=== PATIENT | male | born 1930 | race Caucasian/White ===

== ENCOUNTER → 2016-07-30 | Outpatient (CLI) | payer OTHER ==
[~2016-07-30] MED LIST: ALPHA LIPOIC A300 MG PO; ALPHA LIPOIC A600 M1 PO; ANACIN 400-321 EACH PO; ASA81BEC PO; B-COMPLEX WITH1 EAC2 PO; CATHFLO ACT2 MG/VIA1 IV; CEPHALEXIN 500500 M1 PO; CLEOCIN HCL150 MG PO; COLACE100 MG PO; COMBIGAN EYE DR10 ML OPHTHALMIC; DIPHENHYDRAM50 MG/M2 IV; DULERA 200 MCG/13 GM INH; DUONEB 2.5-0.5 M3 ML INH; ELIQUIS5 MG PO; ENOXAPARIN30 MG/0.1 SUBQ; ENOXAPARIN40 MG/0.1 SUBQ; FERROUS SULFAT325 M1 PO; FISH OIL 1,001000 M2 PO; FISH OIL 1,2001 EAC4 PO; FUROSEMIDE 40 M40 M1 PO; FUROSEMIDE 80 M80 M1 PO; GINKGO BILOBA120 MG PO; GLUCOPHAGE XR500 MG PO; GLUCOPHAGE500 MG PO; HYDROCHLOROTH12.5 MG PO; IRON325 PO; KLOR-CON M2020 MEQ PO; LASIX 20 MG TAB20 MG PO; LASIX 40 MG TAB40 M2 PO; LIPITOR20 MG PO; LIPITOR80 MG PO; LISINOPRIL5 MG PO; MACROBID 100 M100 M1 PO; MAG-AL PLUS SUS30 ML PO; METFORMIN HCL500 MG PO; MICROBID; MIRALAX17 GM PO; NEURONTIN 300300 M1 PO; NORCO 10-325 T1 EACH PO; NOVOLOG100 UNIT/1 SQ; NYSTATIN1 EA10 SW&SWALLOW; POTASSIUM20 PO; PREDNISONE 20 M20 MG PO; PROAIR HFA8.5 GM INH; PROAIR HFA8.5 GM PO; PROTONIX40 M1 PO; PROTONIX40 M2 PO; SLO-NIACIN250 MG PO; SURFAK240 MG PO; TIMOLOL GL0.5 %/5 M1 OP; TOPROL XL50 MG PO; TORSEMIDE20 MG PO; TYLENOL325 MG PO; VENTOLIN HFA 1818 GM INH; VITAMIN D1000 UNI1 PO; VITAMIN D32000 UNIT PO; XALATAN2.5 ML OPHTHALMIC; ZESTRIL20 MG PO; [UNRECOGNIZED DRUG - CODE] PO; [UNRECOGNIZED DRUG - OTHER]; [UNRECOGNIZED DRUG - OTHER]; [UNRECOGNIZED DRUG - OTHER] PO
== END ==
LOC: RAD 08:50
DX: R06.00 Dyspnea, unspecified (principal)

== ENCOUNTER → 2016-10-02 | Outpatient (CLI) | payer OTHER | LOC: ULTRA 02:24 | DX: N13.2 Hydronephrosis with renal and ureteral calculous obstruction (principal) ==

== ENCOUNTER → 2016-10-21 | Outpatient (CLI) | payer OTHER | LOC: RAD 08:59 → NUC 15:16 | DX: M48.56XA Collapsed vertebra, not elsewhere classified, lumbar region, initial encounter for fracture (principal); M85.80 Other specified disorders of bone density and structure, unspecified site; Z79.52 Long term (current) use of systemic steroids ==

== ENCOUNTER → 2018-05-18 | Outpatient (CLI) | payer OTHER | LOC: HYPER 09:31 | DX: S61.220A Laceration with foreign body of right index finger without damage to nail, initial encounter (principal); S61.012A Laceration without foreign body of left thumb without damage to nail, initial encounter; E11.40 Type 2 diabetes mellitus with diabetic neuropathy, unspecified; G47.30 Sleep apnea, unspecified; I10 Essential (primary) hypertension; I48.91 Unspecified atrial fibrillation; M19.90 Unspecified osteoarthritis, unspecified site; Z79.84 Long term (current) use of oral hypoglycemic drugs; Z86.73 Personal history of transient ischemic attack (TIA), and cerebral infarction without residual deficits; Z96.649 Presence of unspecified artificial hip joint; X58.XXXA Exposure to other specified factors, initial encounter; Y93.89 Activity, other specified; Y92.89 Other specified places as the place of occurrence of the external cause; Y99.8 Other external cause status ==

== ENCOUNTER → 2018-06-08 | Outpatient (CLI) | payer OTHER | LOC: HYPER 06:52 | DX: S61.012D Laceration without foreign body of left thumb without damage to nail, subsequent encounter (principal); S61.211D Laceration without foreign body of left index finger without damage to nail, subsequent encounter; E11.40 Type 2 diabetes mellitus with diabetic neuropathy, unspecified; G47.30 Sleep apnea, unspecified; I10 Essential (primary) hypertension; I48.91 Unspecified atrial fibrillation; M19.90 Unspecified osteoarthritis, unspecified site; Z86.73 Personal history of transient ischemic attack (TIA), and cerebral infarction without residual deficits; Z79.84 Long term (current) use of oral hypoglycemic drugs; X58.XXXD Exposure to other specified factors, subsequent encounter ==

== ENCOUNTER 2018-08-26 07:59 | Inpatient (IN) | payer OTHER ==
[~2018-08-26] VITALS: Ht 170.2 cm; Wt 83.9 kg
--- NOTE | ~2018-08-26 | HC ---
[facility] [place] [address] CONSULTATION Name: JATIN LIVE Room #: 426-P [facility] IN M.R.#: [id number] Admission: 08/26/18 ������������������ Attend Phys: Dima Cosme MD Discharge: ������������������ Date of : 30 Report #: [id number] THIS REPORT FOR: //name// CC: Dima Cosme DATE OF SERVICE: 08/27/2018 REASON FOR CONSULTATION: Right parotitis. HISTORY OF PRESENT ILLNESS: The patient is an 88-year-old male who has a 5-day history of swelling of the right parotid gland that has gotten significantly worse over the last couple of days. He said it started off as a quarter-sized mass under his jaw on the right side and progressively increased over the weekend to yesterday. He was seen by Dr. Cosme and encouraged to be admitted; however, he waited another 18 hours and then presented yesterday morning for admission. He has had significant increase in size over the last 2 days. No evidence of fluctuance. He has had a fine needle aspiration performed this morning under ultrasonic guidance and again no evidence of abscess or fluctuance is demonstrated or documented. PAST MEDICAL HISTORY: Significant for diabetes type 2, diabetic neuropathy, chronic kidney disease, proteinuria, atrophic right kidney, COPD, asthma, atrial fibrillation, hyperlipidemia, chronic lymphedema, stroke, cervical disk disease, malnutrition, anemia of chronic disease, left shoulder surgery, transurethral prostate resection and obstructive sleep apnea, CPAP compliant. MEDICATIONS: Listed. He is currently on meropenem in the hospital and was previously on clindamycin. ALLERGIES: SULFA AND PENICILLIN. SOCIAL HISTORY: He lives at [facility]. Denies alcohol or tobacco. REVIEW OF SYSTEMS: Significant for sore right jaw. PHYSICAL EXAMINATION: GENERAL: Well-developed male in no apparent distress. He is up with a walker back and forth to the bathroom. HEENT: Head is normocephalic. Pupils are equal. Nasal: No active rhinorrhea. Oral cavity, no purulence from Stensen's duct is seen. Oropharynx: No granulation, ulceration or mass. NECK: He has a right-sided parotid swelling that is firm. There is no evidence of palpable fluctuance. It is a 7 x 5 x 4 cm. IMPRESSION: Acute parotitis, likely dehydration, cannot rule out inflammatory process or malignancy at this time, although I think it is quite likely that [facility] [address] [facility] [address] CONSULTATION Name: JATIN LIVE Room #: 426-P [facility] IN M.R.#: [id number] Admission: 08/26/18 ������������������ Attend Phys: Dima Cosme MD Discharge: ������������������ Date of : 30 Report #: [id number] this is acute parotitis secondary to GI dehydration. PLAN: He is on meropenem IV and IV hydration. Warm pack and massage are also helpful as his guaifenesin. If he worsens, please recall me, I do not see at this point any evidence that he needs to have anything drained and there is no evidence that he has formed an abscess. Based on his final aspiration results, we will proceed accordingly. ��������������������������������������������� ���������������������������������������� By: ��������������������������������������������� [id number] Bharath Tapia MD /nt
[2018-08-26 09:28] LABS: HEMATOCRIT 37.7 % (42.0-52.0); HEMOGLOBIN 12.5 gm/dL (14.0-18.0); MCH 29.9 pg (26.0-34.0); MCHC 33.1 g/dL (28.0-37.0); MCV 90.4 fL (80.0-100.0); RBC 4.17 mil/uL (4.50-6.00); RDW 14.8 % (10.5-14.5)
[2018-08-26 09:50] LABS: ALBUMIN 2.8 g/dL (3.4-5.0); CALCIUM 8.9 mg/dL (8.5-10.1); CREATININE 1.4 mg/dL (0.7-1.3); POTASSIUM 3.7 mmol/L (3.5-5.1); TOTAL BILIRUBIN 0.7 mg/dL (<0.1-1.0); TOTAL PROTEIN 6.3 g/dL (6.4-8.2)
[2018-08-26 11:28] VITALS: BP 142/68
--- NOTE | 2018-08-26 11:31 | NUR ---
88 YO MALE DIRECTLY ADMITTED BY DR. SWAIN, CAME FROM ADMITTING. A&OX4, R NECK NOTED TO HAVE SWELLING, DENIES PAIN TO THIS AREA. PHONE ORDERS RECEIVED. IV STARTED IN R FA, UA/CX OBTAINED, BLOOD CX DRAWN FROM LAB, PT IS IN CT AT THIS TIME. PT ORIENTED TO ROOM/CALL LIGHT.
--- NOTE | 2018-08-26 12:05 | NUR ---
ASSESSMENT-PT LIVES IN AN INDEPENDENT APT AT [facility]. PT USES A WALKER IN THE APT AND A POWER WC OUTSIDE. PT GOES TO THE DINING AREA FOR HIS MEALS. HE GETS BATH ASSISTANCE DAILY AND HLP WITH [facility]. PT HAS HAD INTERIM HH IN THE PAST. PT HAS A SON AND DTR-IN-LAW HERE AND ANOTHER SON CLOSE TO [facility]. FOLLOWING TO ASSIST WITH DC PLANNING.
[2018-08-26 13:33] LABS: URINE BILIRUBIN NEGATIVE (Negative); URINE BLOOD TRACE (Negative); URINE CLARITY CLEAR; URINE COLOR YELLOW; URINE GLUCOSE-RANDOM* NEGATIVE (Negative); URINE KETONES NEGATIVE (Negative); URINE LEUKOCYTES 2+ (Negative); URINE NITRITE POSITIVE (Negative); URINE PROTEIN (DIPSTICK) 2+ (Negative); URINE SPECIFIC GRAVITY <= 1.005 (1.005-1.035); URINE UROBILINOGEN 0.2 E.U./dl (0.2-1.0)
[2018-08-26 13:43] LABS: BACTERIA >30 Many /HPF (None Seen); CASTS None Seen /LPF (None Seen); CRYSTALS None Seen /LPF (None Seen); SQUAMOUS None Seen /LPF (0-3); TRANSITIONAL EPITHEL CELL 0-3 Few /LPF (None Seen); URINE RBC 3-10 Few /HPF (0-2)
[2018-08-26 15:01] VITALS: BP 169/71
[2018-08-26 15:37] LABS: HEMATOCRIT 39.5 % (42.0-52.0); HEMOGLOBIN 13.1 gm/dL (14.0-18.0); MCH 29.9 pg (26.0-34.0); MCHC 33.2 g/dL (28.0-37.0); PLATELET COUNT 200 thou/uL (150-400); RBC 4.39 mil/uL (4.50-6.00); RDW 14.6 % (10.5-14.5); WBC 8.3 thou/uL (4.0-11.0)
[2018-08-26 16:02] LABS: ABSOLUTE NEUTROPHILS 6.3 thou/uL (1.4-8.2); PLATELET ESTIMATE NORMAL
[2018-08-26 20:33] VITALS: BP 142/71
--- NOTE | 2018-08-27 03:08 | NUR ---
Assumed care of pt at 1900. Pt alert and oriented x4. SBA with his own walker. Motorized WC in room. Cpap at night. Pt straight caths himself as needed. Mass on right neck noted. No c/o pain. NPO after midnight. US biopsy scheduled in the am. No consent printed for pt to sign. Will report this to am nurse. Call light within reach. Will continue to monitor and assist with needs.
[2018-08-27 05:13] VITALS: BP 137/74
[2018-08-27 05:40] LABS: ALBUMIN 2.9 g/dL (3.4-5.0); CALCIUM 9.2 mg/dL (8.5-10.1); POTASSIUM 4.1 mmol/L (3.5-5.1); TOTAL BILIRUBIN 0.8 mg/dL (<0.1-1.0); TOTAL PROTEIN 6.1 g/dL (6.4-8.2)
[2018-08-27 07:21] LABS: APTT 30.8 Seconds (24.5-32.8); INR 1.1; PROTIME 11.2 Seconds (9.3-11.4)
[2018-08-27 07:36] VITALS: BP 170/88
[2018-08-27 07:38] LABS: CREATININE 1.5 mg/dL (0.7-1.3)
--- NOTE | 2018-08-27 11:30 | NUR ---
Assumed pt care at 7a. Pt in and out of bed with assist.Assessment completed. vss.Pt alert and oriented x4 but [place]. Pt encouraged to use bilat.hearing aid. Consult called to Dr Brizuela's office and message left with rachel.Pt kept npo for biopsy.Pt left for radiology dept at 1045 per wc for biopsy.Will continue to monmitor.
--- NOTE | 2018-08-27 14:30 | NUR ---
PT HAVING BX OF PAROTID GLAND TODAY. PT CONTINUES ON IV ABX.
[2018-08-27 16:08] VITALS: BP 125/65
--- NOTE | 2018-08-27 18:30 | NUR ---
RECEIVED PT FROM . PT ALERT/ORIENTED X4. IVF STARTED AND ABX HUNG. PT UP WITH WALKER AND STANDBY ASSIST. PT STRAIGHT CATHED SELF. NO NEW CONCERNS AT THIS TIME. WILL CONTINUE CURRENT CARE.
[2018-08-27 19:53] VITALS: BP 148/78
--- NOTE | 2018-08-28 02:45 | NUR ---
A/O, calm and cooperative; Patient got up to the bathroom using a walker and standby assist; small BM in the bathroom, patient claimed of still feeling constipation, asked for enema, enema order obtained from Dr. Cosme; patient asked to have the enema done in the morning; According to Dr. Cosme, Conculation of Dr. Brizuela was cancelled, the staff called the answering the service and left the message; Patient agreed to follow Dr. Cosme's order to drink more water; VSS, afebrile; patient is lying in bed right now, with eyes closed, CPAP on. Will keep monitoring.
[2018-08-28 06:15] LABS: HEMATOCRIT 38.7 % (42.0-52.0); HEMOGLOBIN 12.3 gm/dL (14.0-18.0); MCH 28.9 pg (26.0-34.0); MCHC 31.8 g/dL (28.0-37.0); MCV 90.8 fL (80.0-100.0); RBC 4.27 mil/uL (4.50-6.00); RDW 15.1 % (10.5-14.5); WBC 12.1 thou/uL (4.0-11.0)
[2018-08-28 06:25] LABS: CALCIUM 8.7 mg/dL (8.5-10.1); CREATININE 1.6 mg/dL (0.7-1.3); POTASSIUM 4.3 mmol/L (3.5-5.1)
[2018-08-28 07:28] VITALS: BP 140/68
--- NOTE | 2018-08-28 13:45 | NUR ---
ASSUMED CARE OF PATIENT THIS MORNING. PATIENT IS ALERT AND ORIENTED X4. HE IS UP SBA W/WALKER WHEN AMBULATING. HE VOIDS PER TOILET. HE DOES SELF STRAIGHT CATHETERIZATION. HE RECEIVED AN ENEMA THIS MORNING, GIVEN BY TRAIN CONDUCTOR. SINCE RECEIVING THE ENEMA HE HAS HAD A COUPLE INCONTINENCE EPISODES WHEN AMBULATING TO THE BATHROOM. PATIENT IS AN ACCUCHECK AC/HS, HE HAS NOT RECEIVED ANY INSULIN THIS MORNING OR AFTERNOON. PATIENT DOES NOT COMPLAIN OF ANY PAIN. CLEAR BREATH SOUNDS AND REGULAR HEART RHYTHM. HE HAS ACTIVE BOWEL SOUNDS LAST BOWEL MOVEMENT WAS TODAY. PATIENT IS CURRENTLY LYING IN BED WITH CALL LIGHT WITHIN REACH. HE CALLS OUT APPROPRIATELY FOR ASSISTANCE.
[2018-08-28 19:40] VITALS: BP 137/71
--- NOTE | 2018-08-29 06:21 | NUR ---
Pt a/o x 4. RA. CPAP at HS. VSS. Self straight cath (chronic). Up with assist and walker, steady on feet. Pt stated this AM that he felt less pressure around right neck abscess area. Heat pad applied to right neck/jaw area with effective pain and swelling relief during this shift. Denies any discomfort at this time. Fall precautions maintained. Call light within reach. Will continue to monitor.
[2018-08-29 07:06] LABS: HEMATOCRIT 40.4 % (42.0-52.0); HEMOGLOBIN 12.9 gm/dL (14.0-18.0); MCH 29.2 pg (26.0-34.0); MCV 91.4 fL (80.0-100.0); RBC 4.43 mil/uL (4.50-6.00); RDW 14.9 % (10.5-14.5); WBC 9.2 thou/uL (4.0-11.0)
[2018-08-29 08:15] VITALS: BP 129/72
[2018-08-29 08:43] LABS: CALCIUM 9.1 mg/dL (8.5-10.1); CREATININE 1.6 mg/dL (0.7-1.3); POTASSIUM 4.8 mmol/L (3.5-5.1)
--- NOTE | 2018-08-29 11:22 | NUR ---
PATIENT CARE WAS ASSUMED AT 0715.PATIENT IS ALERT AND ORIENTED X4.PATIENT IS RESTING IN BED.IV IS INTACT AND SALINE LOCKED.PT HAS NO COMPLAINS OF PAIN AT THIS TIME.PATIENT USES HEATING PAD FOR THERAPY.PT IS ABLE TO AMBULATE WITH STANDBY ASSIST, WITH WALKER.CALL LIGHT, PHONE, AND PERSONAL BELONINGS ARE WITHIN REACH.
[2018-08-29 13:30] VITALS: BP 137/56
--- NOTE | 2018-08-29 13:56 | NUR ---
PATIENT HAD A FALL, WITHOUT INJURY.SUPERVIOR, DOCTOR,AND FAMILY WAS NOTIFIED.FALL RISK PROTOCAL WAS REINFORCED.VITALS WERE TAKEN.CALL LIGHT, PHONE, AND PERSONAL BELONGINGS WERE LEFT WITHIN PATIENT'S REACH.
[2018-08-29 14:05] VITALS: BP 137/56
[2018-08-29 20:53] VITALS: BP 135/75
[2018-08-30 06:29] LABS: CALCIUM 8.6 mg/dL (8.5-10.1); CREATININE 1.5 mg/dL (0.7-1.3); POTASSIUM 4.4 mmol/L (3.5-5.1)
[2018-08-30 07:18] VITALS: BP 144/77
--- NOTE | 2018-08-30 11:06 | HC ---
[facility] [address] CONSULTATION Name: JATIN LIVE Room #: 224-P [facility] IN M.R.#: [id number] Admission: 08/26/18 ������������������ Attend Phys: Dima Cosme MD Discharge: ������������������ Date of : 30 Report #: [id number] THIS REPORT FOR: //name// CC: Dima Cosme DATE OF SERVICE: 08/27/2018 ATTENDING PHYSICIAN: Dima Cosme MD. REASON FOR CONSULTATION: Antibiotic management. HISTORY OF PRESENT ILLNESS: An 88-year-old white man admitted with a 4-5-day history of right-sided facial swelling, possible parotitis scheduled for a needle aspiration and on treatment with meropenem 1 gram IV every 12 hours. The patient had pain rated 3-4/10 in the right side of face, neck. DRUG ALLERGIES: None listed. MEDICATIONS: The patient is currently on meropenem 1 gram IV every 12 hours. He is also on spironolactone, acetaminophen, furosemide, pantoprazole, insulin lispro per sliding scale, brimonidine tartrate ophthalmic, latanoprost ophthalmic, atorvastatin, p.r.n. glucose glucagon, Atrovent and albuterol inhalation treatment p.r.n., hydrocodone p.r.n., tramadol, budesonide, gabapentin and normal saline. SOCIAL HISTORY: See H and P, old records. FAMILY HISTORY: See H and P, old records. PAST MEDICAL HISTORY: History of recurrent urinary tract infections, diabetes mellitus. Diabetic neuropathy. Chronic kidney disease and proteinuria. COPD, bronchial asthma. Atrial fibrillation. Hypertension. Carotid artery plaquing. Cervical spine central canal stenosis. Malnutrition. Dyslipidemia. PHYSICAL EXAMINATION: GENERAL: A well-developed, not toxic looking man. VITAL SIGNS: Temperature 97.5, pulse 77, respirations 18, BP 177/88, height 5 feet 7 inches, weight 185 pounds. HEENMT: Head normocephalic, atraumatic. There is diffuse swelling of right side of the neck and face, a little lower than the usual distribution of parotid gland enlargement, but still suspect this right-sided neck facial swelling is related to parotid gland. Mouth: No thrush, hairy leukoplakia. LUNGS: Clear. HEART: S1, S2. No gallop. ABDOMEN: Soft, no masses or megaly. GENITALIA AND RECTAL: Deferred. [facility] [address] [place] [address] CONSULTATION Name: JATIN LIVE Room #: 224-P [facility] IN M.R.#: [id number] Admission: 08/26/18 ������������������ Attend Phys: Dima Cosme MD Discharge: ������������������ Date of : 30 Report #: [id number] EXTREMITIES: Pretibial edema. NEUROLOGIC: Grossly within normal limits. LABORATORY DATA: Sodium 142, BUN 36, creatinine 1.5, albumin 2.9 g/dL. WBC 8.3, hemoglobin 13.1, platelets 200,000, sedimentation rate 20 mm per hour. RADIOLOGIC EVALUATION: A CT scan of the face revealed right parotid swelling. ASSESSMENT: Acute parotitis. SUGGESTIONS: Recommend lemon drops t.i.d. Oral care with chlorhexidine mouthwashes. Meropenem 500 mg IV every [address] Cosme, thank you for requesting my suggestions. ��������������������������������������������� <ELECTRONICALLY SIGNED> ���������������������������������������� By: Cade Mascorro MD ��������������������������������������������� 08/30/18 1106 [id number] Cade Mascorro MD /nt
--- NOTE | 2018-08-30 13:02 | NUR ---
ASSUMED CARE OF PATIENT THIS MORNING. PATIENT IS A&OX4. HE GETS UP W/1 ASSIST AND WALKER. HE WEARS A CPAP AT NIGHT. PATIENT IS HEARD OF HEARING AND WEARS HEARING AIDS. PATIENT STRAIGHT CATHETERIZES HIMSELF IN BATHROOM PER [facility] BUCKET. PATIENT'S RIGHT SIDE NECK MASS HAS DECREASED IN SIZE, STILL SOME SWELLING AND REDNESS. HE IS DIABETIC AND IS ON LOW DOSE SLIDING SCALE INSULIN, NO INSULIN HAS BEEN GIVEN TODAY. NO ABNORMAL ASSESSMENT FINDINGS. NORMAL SALINE INFUSING IN RIGHT FOREARM IV. LAST BOWEL MOVEMENT WAS TODAY. PATIENT CALLS OUT APPROPRIATELY AND CALL LIGHT IS WITHIN REACH.
[2018-08-30 18:31] VITALS: BP 156/96
[2018-08-30 22:39] VITALS: BP 156/96
--- NOTE | 2018-08-31 04:48 | NUR ---
Patient remains A&Ox4; Swallows meds whole w/o difficulty. Remains cont bowel/Stait cath's self for voiding. Ambulates w/ asst of walker; gait steady. Remains [place]. Blood sugars WNL. Last BM was 08/31/2018. Remains on IVABT/facial abscess; no adverse reactions noted. SL IV noted to L hand; infusing ABT/NS w/o difficulty. Trace edema noted to BLEs; patient encouraged to elevate BLEs as tolerated. CPaP intact. Teds removed at HS.Patient has no c/o pain or discomfort. No s/s of acute distress noted. Patient asleep in bed w/ call light/desired belongings within reach. PO fluids encouraged. Will continue to monitor
[2018-08-31 07:21] LABS: CALCIUM 8.8 mg/dL (8.5-10.1); CREATININE 1.2 mg/dL (0.7-1.3); POTASSIUM 4.1 mmol/L (3.5-5.1)
--- NOTE | 2018-08-31 07:43 | HC ---
[facility] [place] [address] CONSULTATION Name: JATIN LIVE Room #: 224-P [facility] IN .R.#: [id number] Admission: 08/26/18 ������������������ Attend Phys: Dima Cosme MD Discharge: ������������������ Date of : 30 Report #: [id number] THIS REPORT FOR: //name// CC: Luis Alberto Gomez MD DATE OF SERVICE: 08/30/2018 REASON FOR CONSULTATION: Enlarging right neck mass. HISTORY OF PRESENT ILLNESS: The patient is a very pleasant 88-year-old gentleman who had met a number of years back for abnormal counts, who beginning about 08/22/2018, was aware of some enlargement and pain in his right neck. It had progressed in size. Since he has been here, he has had imaging that reveals a right submandibular gland that is prominent compared to the left. The right measures 4.3 x 2.2 x 2.9 and the left measures 2.5 x 1.8 x 3.9. There is also enhancing structures. He had also an ultrasound biopsy at which time they mentioned they had approximately 2 mL of purulent fluid aspirated and also they did a biopsy of the 1.3-cm hypoechoic lesion in the inferior aspect of the right parotid gland. Note that both of these are pending. The patient states that he did not had any trauma. He did not have any bug bites or animal bites. He does not have any sore teeth. He did not have any nasal drainage, any fevers or chills. His bowels have been functioning well. His breathing has been no worse than usual. PAST MEDICAL HISTORY: Notable for history of longstanding type 2 diabetes; diabetic neuropathy; chronic kidney disease, followed by Dr. Gomez; history of atrophic kidney; COPD; asthma; hyperlipidemia; obstructive sleep apnea with use of CPAP; also chronic edema, using pressure stockings; atrial fibrillation. He has also had history of right hemispheric stroke in 06/2015 with weakness of the left upper arm, forearm and some slight hand weakness. He has also had TURP several times before, bilateral knee replacements, left shoulder surgery, I believe may be some back surgeries. ALLERGIES: HE HAS HAD TROUBLE WITH SULFA AND PENICILLIN. MEDICATIONS: At this time in the hospital currently include apixaban 2.5 b.i.d., metformin 500 daily, MiraLax 17 g b.i.d. as needed, guaifenesin extended release 1200 b.i.d., Cepastat lozenges up to 6 times a day, chlorhexidine gluconate 15 mL t.i.d., meropenem 500 mg q. 8 hours, psyllium 6 g daily, spironolactone 25 mg daily, Tylenol as needed, furosemide 80 mg daily p.o., pantoprazole 40 in the morning, insulin on a sliding scale, brimonidine tartrate [address] [address] CONSULTATION Name: MARIA TJATIN Osmin Room #: 224-P [facility] IN .R.#: [id number] Admission: 08/26/18 ������������������ Attend Phys: Dima Cosme MD Discharge: ������������������ Date of : 30 Report #: [id number] b.i.d. ophthalmic drops, latanoprost eyedrops at bedtime, atorvastatin 80 mg daily, IV fluids. PHYSICAL EXAMINATION: GENERAL: The patient appears his stated age. VITAL SIGNS: His recent height is 5 feet 7 inches, which is 170.2 cm. Weight is 185 pounds, which is 83.9 kilograms. Blood pressure recently 144/77 in the left arm. O2 sat 98%, respirations 20, pulse 60, temperature 97.7. MOOD: He is pleasant. NEUROLOGIC: Hard of hearing. Face appears symmetrical. May have some slight left arm weakness as per the record and on exam. LYMPH NODES: No enlarged lymph nodes in the supraclavicular or cervical region. Right gland parotid area is slightly red and swollen. The patient reports this is better than when he was admitted. HEENT: Oropharynx clear of any injection or lesions. ABDOMEN: Obese. No masses, nontender. EXTREMITIES: Without clubbing, cyanosis. There is some trace edema. LAB ORATORY DATA: Lab results notable for recent creatinine of 1.5, BUN of 47. Transaminases and liver functions normal. Albumin 2.9. INR 1.1. Recent white count 9.2, hemoglobin 12.9, MCV 91.4, RDW 14.9, platelets 210. Differential nonacute. Sed rate have been 20. UA did have some leukocytes and nitrite positive on admit. ASSESSMENT AND PLAN: 1. Right parotid mass, hopefully infectious in nature. Await final path. Thinks there could be a small mass or tumor causing obstruction and parotitis. Continue his meropenem for now. We will defer to Infectious Disease and ENT. 2. Diabetes type 2. Continue his diet and medications. 3. Obstructive sleep apnea, on CPAP. 4. Atrial fibrillation, apixaban. 5. Diabetic neuropathy, per others. 6. Chronic kidney disease. Monitor medications and renal function. 7. Chronic obstructive pulmonary disease. Defer to others. Meds per others. 8. Hyperlipidemia, statin. 9. Chronic edema, Aldactone and Lasix. 10. History of right hemispheric stroke, on physical therapy and other attention as needed. We will follow with you. ��������������������������������������������� <ELECTRONICALLY SIGNED> ���������������������������������������� By: George Maldonado MD ��������������������������������������������� 08/31/18 0743 [id number] George Maldonado MD /nt
[2018-08-31 08:04] VITALS: BP 162/99
--- NOTE | 2018-08-31 08:18 | NUR ---
ASSUMED PT CARE AT 0700. PT AWAKE, ALERT/ORIENTED X4. DENIES PAIN. REPORTS HE IS HAVING SOME LOOSE STOOLS. OTHERWISE NO NEW COMPLAINTS. LESION TO RIGHT NECK/CHEEK AREA IS SLIGHTLY REDDENED AND OPEN TO AIR. APPEARS TO BE IMPROVING. NO DRAINAGE NOTED. ASSESSMENT COMPLETED AND IS CHARTED. VITAL SIGNS STABLE WITH EXCEPTION OF ELEVATED BLOOD PRESSURE AT 162/99. WILL CONTINUE CURRENT CARE.
--- NOTE | 2018-08-31 13:17 | NUR ---
PT DOING WELL THIS SHIFT. THOUGH HE IS RELUCTANT TO CALL FOR HELP OR RECEIVE ANY KIND OF INSTRUCTION FROM PHYSICAL THERAPY FOR SAFETY. PT IS IMPULSIVE AND GETS UP ON OWN. CHAIR ALARM AND BED ALARMS UTILIZED THIS SHIFT TO PREVENT FALL. PT DID GET AGITATED AND EVEN YELLED AT PHYSICAL THERAPY THIS MORNING WHEN GIVEN INSTRUCTIONS FOR HOW TO SAFELY SIT DOWN ON BED. PT DID APOLOGIZE AND HAS NOT BEEN AGGRESSIVE SINCE.
--- NOTE | 2018-08-31 17:59 | NUR ---
PT DID WELL THIS SHIFT. WAS COMPLIANT WITH CALLING TO GET UP TO BATHROOM. NO C/O PAIN. WILL CONTINUE WITH CURRENT CARE.
[2018-08-31 19:18] VITALS: BP 155/83
[2018-08-31 21:36] VITALS: BP 155/83
--- NOTE | 2018-09-01 03:33 | NUR ---
Patient remains A&Ox4; Swallows meds whole w/o difficulty. Remains cont. bowel/Strait cath's self for void. Ambulates w/ asst of walker; gait steady. Blood sugars WNL. Reamins on IVABT/Facial abscess; no adverse reactions noted. IV noted to R hand; infusing ABT/flushed w/o difficulty. Remains [place]; utilizes CHUN's. Remains on Fall risk status. Patient has no c/o pain or discomfort. No s/s of acute distress noted. Patient asleep in bed w/ Cpap intact and call light/desired belongings within reach. Po fluids encouraged. Will continue to monitor
[2018-09-01 06:59] LABS: HEMATOCRIT 39.2 % (42.0-52.0); HEMOGLOBIN 12.9 gm/dL (14.0-18.0); MCV 90.8 fL (80.0-100.0); PLATELET COUNT 234 thou/uL (150-400); RBC 4.31 mil/uL (4.50-6.00); RDW 14.6 % (10.5-14.5); WBC 7.9 thou/uL (4.0-11.0)
[2018-09-01 07:06] LABS: CALCIUM 8.8 mg/dL (8.5-10.1); CREATININE 1.2 mg/dL (0.7-1.3); POTASSIUM 4.5 mmol/L (3.5-5.1)
[2018-09-01 07:34] LABS: ABSOLUTE NEUTROPHILS 5.5 thou/uL (1.4-8.2)
[2018-09-01 07:35] LABS: ANISOCYTOSIS 1+
[2018-09-01 08:25] VITALS: BP 175/101
--- NOTE | 2018-09-01 10:24 | NUR ---
SW reviewed chart and spoke with nursing due to length of stay. Pt was [facility] to [facility] from . Awaiting path reports at this time. Pt remains on IV abx: meropenem. Pt is from [facility]. Plan is for pt to return to his apt when medically stable. MARGE is following to assist as needed with discharge planning.
--- NOTE | 2018-09-01 13:34 | NUR ---
I AGREE WITH NURSING ASSESSMENT DONE BY CLARISSE/ANTHONY.
--- NOTE | 2018-09-01 14:02 | NUR ---
ASSUMED CARE OF PATIENT THIS MORNING. PATIENT IS A&OX4. HE GETS UP X1 W/WALKER. HE GETS Q4H BREATHING TREATMENTS. PATIENT WEARS A CPAP AT NIGHT. HE DOES SELF CARE STRAIGHT CATHETERIZATION. PATIENT WEARS LORY HOSE DURING THE DAY. HE IS DIABETIC AND ACCUCHECK IS AC/HS AND HE IS ON A LOW DOSE SLIDING SCALE. PATIENT HAS NOT REQUIRED ANY INSULIN TODAY. PATIENT IS A FALL RISK AND FALL PRECAUTIONS ARE IN PLACE. PATIENT CALLS OUT [facility] FOR ASSISTANCE. PATIENT IS CURRENTLY RESTING IN BED WITH CALL LIGHT WITHIN REACH. HE CALLS OUT APPROPRIATELY FOR ASSISTANCE.
[2018-09-01 14:44] VITALS: BP 168/92
[2018-09-01 19:35] VITALS: BP 147/85
--- NOTE | 2018-09-02 05:50 | NUR ---
RIGHT NECK SWELLING DECREASED, DR SWAIN ROUNDED LAST NOC, POSSIBLE DC TODAY, UP WITH ASSIST WITH AMBULATION, SELF CATH IN THE TOILET, C/O CONSTIPATION, GIVEN MIRALAX WITH RESULT THIS MORNING, SKIN INTACT ASIDE FROM SOME REDNESS TO BOTTOM WHICH IS BLANCHABLE, ON ROOM AIR, DENIES PAIN AT THIS TIME, NO SOB NOTED, USED CPAP ALL NOC, USING DEPENDS FOR DRIBBLES, CONTINUE TO RECEIVE IV ANTIBIOTICS, TOLERATING ORAL INTAKE, SOME SWELLING TO BLE, USING HIS OWN COMPRESSION STOCKING IN THE DAY TIME, SOCKS AT [facility], MONITORED.
[2018-09-02 08:27] VITALS: BP 127/64
--- NOTE | 2018-09-02 08:32 | NUR ---
ASSUMED PT CARE AT 0700. ASSESSMENT COMPLETED AND IS CHARTED. VSS. PT IS AWAKE, PLEASANT, ALERT/ORIENTED X4. DENIES PAIN. OPEN LESION TO RIGHT CHEEK IS HEALING, SURROUNDING SKIN SLIGHTLY REDDENED. PT REPORTS SOME DIARRHEA SINCE RECEIVING A LAXATIVE LAST NIGHT, BUT FEELS IT IS RESOLVING. OTHERWISE NO NEW CONCERNS. WILL CONTINUE WITH CURRENT CARE.
--- NOTE | 2018-09-02 10:17 | NUR ---
SW reviewed chart and spoke with nursing. Pt remains on IV abx. Awaiting input from ID. SW met with pt at bedside to discuss discharge plan. Pt states he is hoping to d/c home today. Pt will return to his AR apt at [facility]. Pt states he does not need HH services. Pt's scooter is at the bedside. Pt states he has updated [facility]. SW is following to assist as needed with discharge planning.
--- NOTE | 2018-09-02 10:54 | NUR ---
Nutrition: assess d/t LOS. Pt admitted for acute parotitis. Hx of CKD-3 and DM. Pt reports good appetite and no recent weight loss. Possible d/c today. Consider low risk.
[2018-09-02] MEDS ORDERED: LISINOPRIL5 MG PO (12:53)
[2018-09-02] MEDS ORDERED: CLEOCIN HCL150 MG PO (12:55)
[2018-09-02] MEDS ORDERED: SPIRONOLACTONE25 M1 PO (12:57)
[2018-09-02] MEDS ORDERED: LASIX 40 MG TAB40 MG PO (12:59)
[2018-09-02] MEDS ORDERED: TRAVATAN Z5 ML OPHTHALMIC (13:05)
[2018-09-02] MEDS ORDERED: BREO ELLIPTA 21 EACH INH (13:09)
[2018-09-02] MEDS ORDERED: PERIDEX 0.12%473 M1 SWISH&SPIT (13:29)
--- NOTE | 2018-09-02 13:57 | H ---
[facility] [place] [address] HISTORY AND PHYSICAL Name: JATIN LIVE Room #: 224-P ADM IN M.R.#: [id number] Admission: 08/26/18 ������������������ Attend Phys: Dima Cosme MD Discharge: ������������������ Date of : 30 Report #: [id number] THIS REPORT FOR: //name// CC: Dima Cosme DATE OF SERVICE: 08/26/2018 CHIEF COMPLAINT: Rapidly growing tender right neck mass. HISTORY OF PRESENT ILLNESS: Beginning about 08/22/2018 the patient noticed tender enlargement developing into a mass in his right neck, it steadily progressed in size. Since then, it has regressed on some days and then gotten larger on other days. He came to see me yesterday in the office to have it evaluated. Examination showed a large 7 x 5 x 2 cm irregularly shaped mildly tender, somewhat fixed mass in the upper right middle neck. It was solid without fluctuance. There was no adjacent adenopathy. The oropharynx was normal. He had a mildly elevated temperature of 99.1. There were no corresponding abnormalities on the contralatera neck. It was recommended that he have it evaluated in the hospital that day, but he chose instead to get his affairs in order, and then present this morning at 8:00 for admission. Since the neck CT this morning the neck mass has grown about 20% in size and filled in the area under the right angle of the mandible. He has not had any abnormalities of neck, masses or of his salivary glands in the past. PAST MEDICAL HISTORY: Significant for longstanding type 2 diabetes; diabetic neuropathy; chronic kidney disease and proteinuria, followed by Dr. Eduardo Gomez; longstanding atrophic right kidney; COPD; asthma; atrial fibrillation; hyperlipidemia and chronic edema, treated in part with pressure stockings. He has chronic atrial fibrillation and started taking anticoagulation after a small stroke, treated at [place] in summer 2014. He had right hemispheric stroke with left upper arm, forearm and hand weakness. He self-catheterizes. Glaucoma. Right-sided carotid plaque with 50% stenosis and left carotid 40% stenosis. Moderate central canal stenosis of C4-C5 and C6-C7 with cervical spine severe central canal C3-C4 2014 and bilateral foraminal stenosis, peripheral neuropathy from his cervical spine disease. History of severe malnutrition and the anemia of chronic disease, COPD, hypertension, dyslipidemia, known chronically severe atrophic right kidney, chronic obesity, bilateral knee replacements, left shoulder surgery, TURP several times. Obstructive sleep apnea and uses a CPAP. [facility] [address] [place] [address] HISTORY AND PHYSICAL Name: JATIN LIVE Room #: 224-P [facility] IN ..#: [id number] Admission: 08/26/18 ������������������ Attend Phys: Dima Cosme MD Discharge: ������������������ Date of : 30 Report #: [id number] MEDICATIONS: Eliquis 5 mg twice daily, spironolactone 25 mg once daily by Dr. Eduardo Gomez, pantoprazole 40 mg once daiy, furosemide 40 mg 2 tablets daily, atorvastatin 80 mg daily, metformin 500 mg once daily, gabapentin 600 mg 2-3 pills each day, Breo Ellipta 200-25 1 puff in the morning, ferrous sulfate 325 daily, Combigen 1 drop each eye twice a day, Travatan Z 1 drop each eye at night. Clindamycin 150mg 4 capsules before seeing the dentist. His last dose of metformin and Eliquis was yesterday morning. He has been taking his clindamycin 4 times a day since yesterday. Allergies: He developed a rash in the s while taking both sulfa and penicillin, and was told not to take either of them any more. SOCIAL HISTORY: He lives independently at [facility]. He has aides that help him don and doff his high pressure support stockings. He does not drink or smoke. PHYSICAL EXAMINATION: GENERAL: Showed a 5 x 7 x 2 cm irregularly shaped firm mass underneath the right angle of the mandible, it was semi-fixed. No internal echoes or other echoes were noticed. Aside from the mass in the right neck, there are no other. HEENT: Unremarkable. Otherwise, the oropharynx is normal. NECK: There is no adenopathy or masses around the upper right neck. CHEST: The lungs are diminished, but clear uniformly. CARDIOVASCULAR: S1 and S2 are normal and the rhythm is irregularly irregular. ABDOMEN: Obese, soft and nontender. EXTREMITIES: There is 2-3+ edema in the lower extremities and pressure stockings are in place. CT shows a very large right parotid gland that could be tumor or parotiditis. ASSESSMENT: 1. Rapidly growing large tender mass of the upper right parotid. 2. Fever. 3. Type 2 diabetes, maintained on diet and oral medication. 4. HENRIETTA on CPAP. 5. CKD Stage III. 4. Other multiple medical problems as listed above. PLAN: The patient has undergone CT scanning, which shows the large mass in his neck to be an extension of the right parotid gland. Needle biopsy planned. He has mildly elevated erythrocyte sedimentation rate and C-reactive protein values. Infectious Disease consultation is being requested as this could be a [facility] [address] [place] [address] HISTORY AND PHYSICAL Name: JATIN LIVE Room #: 224-P ADM IN M.R.#: [id number] Admission: 08/26/18 ������������������ Attend Phys: Dima Cosme MD Discharge: ������������������ Date of : 30 Report #: [id number] parotid gland infection/inflammation. Equally, they could be a common parotid tumor and for this an ear, nose and throat physician is being consulted as well. His home medications including Lasix, potassium and spironolactone are being continued in the hospital. His Eliquis, metformin and ferrous sulfate are being withheld. With IV contrast having been given, IV saline overnight and recheck lab in the am. ��������������������������������������������� <ELECTRONICALLY SIGNED> ���������������������������������������� By: Dima Cosme MD ��������������������������������������������� 09/02/18 1357 [id number] Dima Cosme MD /nt
[2018-09-02 13:58] VITALS: BP 127/64
--- NOTE | 2018-09-02 14:17 | NUR ---
DISMISSED PT IN STABLE CONDITION VIA POWER SCOOTER WITH VOLUNTEER ESCORT. IV REMOVED.
--- NOTE | 2018-09-03 15:23 | PATH ---
[facility] [address] [place] [address] PATHOLOGY RPT PROCEDURE Name: JATIN LIVE Room #: 224-P [facility] IN M.R.#: [id number] ������������������ Admission: 08/26/18 ������������������ Date of : 30 Discharge: 09/02/18 Report #: [id number] Path Case #: [id number] LCA Accession Number: [id number] . 01 Material submitted: . RT PAROTID MASS . 01 Clinical history: . Right parotid mass . 02 Diagnosis: Salivary gland, neck mass/right parotid mass, needle core biopsy: - Marked acute and chronic inflammation associated with fibrinopurulent degenerative changes (please see comment). - Negative for malignant epithelial cells. - Negative for lymphoepithelial lesions. (IUV:lizeth; 08/30/2018) MBR/08/30/2018 . 02 Comment: Examination shows a mixed salivary gland with marked acute and chronic inflammatory infiltrate interspersed with areas of fibrinoid degeneration and fibrinopurulent material. Findings may be suggestive of an abscess. Myxoid stroma, or salivary glandular lesions are not present in this biopsy tissue. Please note sample may not be entirely authorization representative. Correlate clinically and followup as indicated. (IUV:dispatcher tugboat; 08/30/2018) . 02 Electronically signed: . Padmini Peterson MD, Pathologist NPI- [id number] . 01 Gross description: . The specimen is received in formalin, labeled "Jatin Live, right parotid". Received is a single needle core of pale gomez soft tissue measuring 0.8 cm in length by 0.1 cm in diameter. The specimen is submitted entirely in cassette A1. (CAA; 08/27/2018) QAC/QAC . 02 Pathologist provided ICD-10: K11.21, K11.23 . 02 CPT . 134722 Specimen Comment: Report sent to / DR SWAIN Specimen Comment: A duplicate report has been [place] [address] PATHOLOGY RPT PROCEDURE Name: JATIN LIVE Room #: 224-P DIS IN M.R.#: [id number] ������������������ Admission: 08/26/18 ������������������ Date of : 30 Discharge: 09/02/18 Report #: [id number] Path Case #: [id number] updates. Performed at: 01 [facility] [place] [address], [place], [place] [id number] MD Chacho Cha MD Phone: [phone] Performed at: [address] [id number] MD Padmini Peterson MD Phone: [phone]
== END 2018-09-02 14:18 | disposition home or self-care (01) | DRG 139 ==
LOC: 4E 07:59 → SICU 07:59 → ENTRNSPT 09-02 14:07 → SICU 09-02 14:18
PROVIDERS: Internal Medicine; ADMIT Internal Medicine
PROC: 0CB Mouth and Throat, Excision (ICD-10-PCS; principal; 2018-08-27)
PROC: 0C9 Mouth and Throat, Drainage (ICD-10-PCS; principal; 2018-08-27)
DX: K11.3 Abscess of salivary gland (principal); E43 Unspecified severe protein-calorie malnutrition; N17.9 Acute kidney failure, unspecified; N39.0 Urinary tract infection, site not specified; K11.21 Acute sialoadenitis; E11.22 Type 2 diabetes mellitus with diabetic chronic kidney disease; N18.3 Chronic kidney disease, stage 3 (moderate); E11.40 Type 2 diabetes mellitus with diabetic neuropathy, unspecified; J44.9 Chronic obstructive pulmonary disease, unspecified; J45.909 Unspecified asthma, uncomplicated; I12.9 Hypertensive chronic kidney disease with stage 1 through stage 4 chronic kidney disease, or unspecified chronic kidney disease; E78.5 Hyperlipidemia, unspecified; G47.33 Obstructive sleep apnea (adult) (pediatric); Z96.653 Presence of artificial knee joint, bilateral; I48.2 Chronic atrial fibrillation; D72.810 Lymphocytopenia; Z86.73 Personal history of transient ischemic attack (TIA), and cerebral infarction without residual deficits; Z88.0 Allergy status to penicillin; Z88.2 Allergy status to sulfonamides; Z68.29 Body mass index [BMI] 29.0-29.9, adult
CPT/HCPCS: 10783; 15002

== ENCOUNTER → 2018-10-26 | Outpatient (CLI) | payer OTHER ==
[~2018-10-26] MED LIST changes: +BREO ELLIPTA 21 EACH INH; +LASIX 40 MG TAB40 MG PO; +PERIDEX 0.12%473 M1 SWISH&SPIT; +SPIRONOLACTONE25 M1 PO; +TRAVATAN Z5 ML OPHTHALMIC
== END ==
LOC: ULTRA 09:44
DX: N13.30 Unspecified hydronephrosis (principal); N20.0 Calculus of kidney; N28.1 Cyst of kidney, acquired; K80.20 Calculus of gallbladder without cholecystitis without obstruction

== ENCOUNTER 2019-03-31 11:50 | Emergency (ER) | payer OTHER ==
[~2019-03-31] VITALS: Ht 170.2 cm; Wt 83.9 kg
[~2019-03-31 11:50] MED LIST changes: -DOXYCYCLINE 10100 MG PO
[2019-03-31] MEDS ORDERED: LASIX 20 MG TAB20 MG PO (12:47)
[2019-03-31 12:48] LABS: HEMATOCRIT 38.1 % (42.0-52.0); HEMOGLOBIN 12.2 gm/dL (14.0-18.0); MCH 30.2 pg (26.0-34.0); MCHC 31.9 g/dL (28.0-37.0); MCV 94.6 fL (80.0-100.0); PLATELET COUNT 262 thou/uL (150-400); RBC 4.03 mil/uL (4.50-6.00); RDW 16.4 % (10.5-14.5); WBC 7.1 thou/uL (4.0-11.0)
[2019-03-31 12:56] LABS: CREATININE 1.3 mg/dL (0.7-1.3); POTASSIUM 3.2 mmol/L (3.5-5.1)
[2019-03-31 13:03] LABS: ALBUMIN 2.8 g/dL (3.4-5.0); TOTAL BILIRUBIN 0.6 mg/dL (<0.1-1.0); TOTAL PROTEIN 6.8 g/dL (6.4-8.2)
[2019-03-31 13:19] LABS: ABSOLUTE NEUTROPHILS 4.9 thou/uL (1.4-8.2)
[2019-03-31 13:20] LABS: PLATELET ESTIMATE NORMAL
[2019-03-31] MEDS ORDERED: DOXYCYCLINE 10100 MG PO (14:22)
[2019-03-31 14:37] VITALS: BP 147/83
== END 2019-03-31 15:23 | disposition home or self-care (01) ==
LOC: ER 11:50
PROVIDERS: Nurse Practitioner Family
DX: S80.11XA Contusion of right lower leg, initial encounter (principal); L03.115 Cellulitis of right lower limb; E87.70 Fluid overload, unspecified; E11.40 Type 2 diabetes mellitus with diabetic neuropathy, unspecified; I48.91 Unspecified atrial fibrillation; K21.9 Gastro-esophageal reflux disease without esophagitis; I10 Essential (primary) hypertension; E78.00 Pure hypercholesterolemia, unspecified; G47.30 Sleep apnea, unspecified; Z90.89 Acquired absence of other organs; Z96.653 Presence of artificial knee joint, bilateral; Z85.828 Personal history of other malignant neoplasm of skin; Z85.51 Personal history of malignant neoplasm of bladder; Z98.890 Other specified postprocedural states; Z86.14 Personal history of Methicillin resistant Staphylococcus aureus infection; Z88.0 Allergy status to penicillin; Z88.2 Allergy status to sulfonamides; W22.8XXA Striking against or struck by other objects, initial encounter; Y93.89 Activity, other specified; Y92.002 Bathroom of unspecified non-institutional (private) residence as the place of occurrence of the external cause; Y99.8 Other external cause status

== ENCOUNTER → 2019-03-31 | Outpatient (CLI) | payer OTHER ==
[~2019-03-31] MED LIST changes: +DOXYCYCLINE 10100 MG PO
== END ==
LOC: RAD 11:20
DX: J90 Pleural effusion, not elsewhere classified (principal); I11.9 Hypertensive heart disease without heart failure

== ENCOUNTER → 2019-04-06 | Outpatient (CLI) | payer OTHER ==
[~2019-04-06] MED LIST changes: +DOXYCYCLINE 10100 MG PO
== END ==
LOC: HYPER 02:37
DX: E11.622 Type 2 diabetes mellitus with other skin ulcer (principal); L97.811 Non-pressure chronic ulcer of other part of right lower leg limited to breakdown of skin; E11.40 Type 2 diabetes mellitus with diabetic neuropathy, unspecified; E11.39 Type 2 diabetes mellitus with other diabetic ophthalmic complication; H40.9 Unspecified glaucoma; H42 Glaucoma in diseases classified elsewhere; I10 Essential (primary) hypertension; I48.91 Unspecified atrial fibrillation; M19.90 Unspecified osteoarthritis, unspecified site; G47.30 Sleep apnea, unspecified; R29.6 Repeated falls; Z79.01 Long term (current) use of anticoagulants; Z86.73 Personal history of transient ischemic attack (TIA), and cerebral infarction without residual deficits

== ENCOUNTER → 2019-05-11 | Outpatient (CLI) | payer OTHER | LOC: RAD 09:45 | DX: J90 Pleural effusion, not elsewhere classified (principal); R91.8 Other nonspecific abnormal finding of lung field; J18.9 Pneumonia, unspecified organism; I51.7 Cardiomegaly; J98.11 Atelectasis; Z88.8 Allergy status to other drugs, medicaments and biological substances; Z88.2 Allergy status to sulfonamides ==

== ENCOUNTER → 2019-06-01 | Outpatient (CLI) | payer OTHER | LOC: HYPER 08:22 | DX: E11.622 Type 2 diabetes mellitus with other skin ulcer (principal); L97.811 Non-pressure chronic ulcer of other part of right lower leg limited to breakdown of skin; S90.411D Abrasion, right great toe, subsequent encounter; S80.11XD Contusion of right lower leg, subsequent encounter; E11.39 Type 2 diabetes mellitus with other diabetic ophthalmic complication; H40.9 Unspecified glaucoma; E11.40 Type 2 diabetes mellitus with diabetic neuropathy, unspecified; G47.30 Sleep apnea, unspecified; H91.90 Unspecified hearing loss, unspecified ear; I10 Essential (primary) hypertension; I48.91 Unspecified atrial fibrillation; M19.90 Unspecified osteoarthritis, unspecified site; Z86.73 Personal history of transient ischemic attack (TIA), and cerebral infarction without residual deficits; Z79.01 Long term (current) use of anticoagulants; W22.8XXD Striking against or struck by other objects, subsequent encounter ==

== ENCOUNTER → 2019-06-01 | Outpatient (CLI) | payer OTHER | LOC: RAD 11:00 | DX: J98.11 Atelectasis (principal); J90 Pleural effusion, not elsewhere classified; M19.011 Primary osteoarthritis, right shoulder; M19.012 Primary osteoarthritis, left shoulder ==

== ENCOUNTER → 2019-06-16 | Outpatient (CLI) | payer OTHER | LOC: HYPER 07:06 | DX: S80.11XD Contusion of right lower leg, subsequent encounter (principal); S90.411D Abrasion, right great toe, subsequent encounter; E11.39 Type 2 diabetes mellitus with other diabetic ophthalmic complication; H40.9 Unspecified glaucoma; H42 Glaucoma in diseases classified elsewhere; E11.40 Type 2 diabetes mellitus with diabetic neuropathy, unspecified; I10 Essential (primary) hypertension; L84 Corns and callosities; I48.91 Unspecified atrial fibrillation; R29.6 Repeated falls; G47.30 Sleep apnea, unspecified; M19.90 Unspecified osteoarthritis, unspecified site; Z79.01 Long term (current) use of anticoagulants; X58.XXXD Exposure to other specified factors, subsequent encounter ==

== ENCOUNTER 2019-07-05 09:38 | Emergency (ER) | payer OTHER ==
[~2019-07-05] VITALS: Ht 170.2 cm; Wt 79.4 kg
[2019-07-05] MEDS ORDERED: LIPITOR80 MG PO (10:06)
[2019-07-05] MEDS ORDERED: EFFER-K 10 MEQ10 ME1 PO (10:07)
[2019-07-05] MEDS ORDERED: SLOW FE142 MG PO (10:08)
[2019-07-05 11:03] LABS: HEMATOCRIT 34.7 % (42.0-52.0); HEMOGLOBIN 11.1 gm/dL (14.0-18.0); MCH 28.8 pg (26.0-34.0); MCV 89.9 fL (80.0-100.0); RBC 3.86 mil/uL (4.50-6.00); RDW 16.1 % (10.5-14.5); WBC 8.4 thou/uL (4.0-11.0)
[2019-07-05 11:11] LABS: CALCIUM 9.4 mg/dL (8.5-10.1); CREATININE 1.6 mg/dL (0.7-1.3)
[2019-07-05 11:17] LABS: ALBUMIN 2.6 g/dL (3.4-5.0); TOTAL BILIRUBIN 0.5 mg/dL (<0.1-1.0); TOTAL PROTEIN 6.6 g/dL (6.4-8.2); URIC ACID* 8.9 mg/dL (2.6-7.2)
[2019-07-05] MEDS ORDERED: MITIGARE0.6 MG PO (12:49)
[2019-07-05] MEDS ORDERED: NORCO 5-325 TA1 EAC1 PO (12:49)
[2019-07-05] MEDS ORDERED: SENNA PLUS TAB1 EACH PO (12:49)
[2019-07-05 13:31] VITALS: BP 118/68
== END 2019-07-05 13:39 | disposition home or self-care (01) ==
LOC: ER 09:38
PROVIDERS: Emergency Medicine
DX: M10.041 Idiopathic gout, right hand (principal); N17.9 Acute kidney failure, unspecified; I11.0 Hypertensive heart disease with heart failure; I48.91 Unspecified atrial fibrillation; I50.9 Heart failure, unspecified; E78.00 Pure hypercholesterolemia, unspecified; E11.9 Type 2 diabetes mellitus without complications; K21.9 Gastro-esophageal reflux disease without esophagitis; G47.30 Sleep apnea, unspecified; Z90.49 Acquired absence of other specified parts of digestive tract; Z96.653 Presence of artificial knee joint, bilateral; Z88.0 Allergy status to penicillin; Z88.2 Allergy status to sulfonamides

== ENCOUNTER 2019-07-08 20:28 | Inpatient (IN) | payer OTHER ==
[~2019-07-08] VITALS: Ht 170.2 cm; Wt 77.6 kg
--- NOTE | ~2019-07-08 | D ---
[facility] [place] [address] DISCHARGE SUMMARY Name: JATIN LIVE Room #: 438-P [facility] IN M.R.#: [id number] Admission: 07/08/19 Attend Phys: Dima Cosme MD Discharge: 07/21/19 Date of : 30 Report #: [id number] THIS REPORT FOR: //name// CC: Kerrie Stout MD [facility] Dima Darling MD [facility] phone: [phone] fax: [phone] DATE OF SERVICE: 07/21/2019 SUMMARY OF HISTORY AND PHYSICAL: The patient presented to the Emergency Room with progressive shortness of breath and was found to be in acute hypoxic respiratory failure, both due to heart failure and COPD and to have an elevated creatinine and increase in his chronic significant edema. He required hospitalization for close intervention by multiple specialists. SUMMARY OF HOSPITAL COURSE: He was seen on admission and started with diuresis by the cardiologists. He was seen by the Pulmonary Medicine physicians and noted to have poor functional tolerance along with severe COPD and felt to have a less than optimistic prognosis. He was seen by the c 40a crew chief as well, with a similar impression. His baseline creatinine was around 1.5 with chronic kidney disease and nephrotic range proteinuria. He was supposed to have been on an CATALINO inhibitor (ramipril), spironolactone, and furosemide, but the spironolactone and CATALINO inhibitor had been dropped this last fall as he had struggled with low blood pressures and progressive shortness of breath with exertion. With his pulmonary artery hypertension of 70 mmHg, the c 40a crew chief felt he would not tolerate angiotensin converting enzyme inhibitor medication, but did recommend loop diuretic and resumption of spironolactone. He was initially placed on torsemide 40 mg once a day, then twice a day and the spironolactone 25 mg a day was added. He must have had a greater degree of heart failure than initially appreciated, because as the diuretics were increased and his hospital course progressed, his creatinine actually dropped steadily to 1.4. His marked peripheral edema improved. The c 40a crew chief added metolazone 5 mg once daily and then reduced it to 5 mg every other day as his creatinine went back up to 1.6 and then 1.7. The c 40a crew chief cautioned that with his multiple medical system, severe comorbidities that complications of the diuresis should be carefully looked for and would likely occur. The c 40a crew chief indicated that his pleural effusions would not respond to diuresis. He had 2250 mL removed from the right pleural space and a second [address] [address] DISCHARGE SUMMARY Name: JATIN LIVE Room #: 438-P [facility] IN M.R.#: [id number] Admission: 07/08/19 Attend Phys: Dima Cosme MD Discharge: 07/21/19 Date of : 30 Report #: [id number] thoracentesis removed 750 mL from the left pleural space. He did receive a symptomatic improvement in his breathing with these procedures in addition to his diuresis. His weights were not accurately recorded, but it was estimated that he lost 20 to perhaps 30 pounds of edema fluid. His shortness of breath with exercise improved to some degree, but he did have leg weakness from deconditioning. Additionally, while he was spending his time part of his hospital stay lying in bed, and started leg catalino wraps, his edema redistributed from his legs and he developed marked scrotal edema. His Tim catheter was maintained in place; and with progressive diuresis, getting stronger, and sitting up more the scrotal and penile edema had almost resolved at discharge. He had type 2 diabetes and was maintained on a sliding scale, but did not eat much initially and was beginning to eat better and requiring insulin at discharge. His consultants reported that an outpatient pulmonary function tests within the last month showed severe COPD with an FEV1 of 0.772 (34% predicted), FVC 1.35 liters (46% predicted) and FEV1/FVC of 57%. His heart failure was not well treated last fall at the time of that study, and may have added to the abnormal results. Echocardiogram showed his chronic atrial fibrillation with normal sized left ventricle and normal wall motion with borderline concentric LVH. LVEF was 50-55% with discordant septal motion from his chronic left bundle-branch block. Right ventricle was mildly dilated with normal right ventricle systolic function. The left atrium and the right atrium were both severely dilated. The mitral valve was severely regurgitant. The aortic valve showed [id number] stenosis with maximum gradient of 16 mmHg and mean pressure gradient of 8.3 mmHg. There was no mitral stenosis. Pulmonary artery pressure was estimated to be quite high at 70 mmHg. Thoracentesis fluid showed a transudate. Creatinine on admission was 1.9, dropped to 1.3 as diuresis progressed and was 1.7 at discharge. BUN was 91 on admission, dropped to 88 with diuresis and was 101 at discharge. Magnesium was normal at 1.9. Uric acid was elevated at 9.6. He did have an episode of gout in his right long finger that was treated with prednisone and colchicine and resolved. Albumin was low at 2.7 on admission and 2.1 at discharge, qualifying for severe malnutrition. Troponin was minimally elevated as is his usual at 0.24 and was not significant. NT-proBNP was 19,593 on admission. [facility] [place] [address] DISCHARGE SUMMARY Name: JATIN LIVE Room #: 438-P [facility] IN M.R.#: [id number] Admission: 07/08/19 Attend Phys: Dima Cosme MD Discharge: 07/21/19 Date of : 30 Report #: [id number] INR was 1.1. D-dimer was elevated at 1.67. Hemoglobin was 11.8 on admission, 12.3 at discharge. Differential showed 80% segmented neutrophils and was otherwise normal. Urinalysis showed 2+ protein, 2+ blood and 3+ leukocytes with many wbc's and bacteria. Urine culture grew 2 species of E. coli that were multiply sensitive, being resistant only to trimethoprim sulfa, tetracycline and ampicillin/ampicillin sulbactam. With his history of PENICILLIN and SULFA allergies, the Infectious Disease decorator consultant recommended the use of cephalexin, which he tolerated well for his self-catheterizing associated urine infection. He had small amount of crusted exudate on his eyelids and was diagnosed with blepharitis and started on daily washes with no tear shampoo. He complained of left hip pain and was found to have end-stage osteoarthritis on his x-rays. His consultants felt that he was not an operative candidate because of his other medical problems. He was maintained with fall aerosolized bronchodilator and aerosolized corticosteroid support. On admission, he had pO2 of 68.5 with an oxygen saturation of 93.5%, measured on room air with blood gas and pCO2 of 42.3, pH was 7.42. On the day of discharge, his pH was 7.57, pCO2 was 30.5 and his pO2 was 153.3 after spending the entire day on room air. His oxygen saturation was calculated at 99%. Video swallow study showed mild oropharyngeal dysphagia and recommended a mechanical soft diet, chopped with regular liquids and close supervision and taking his pills with puree or pudding. CT scan of the chest showed bilateral pleural effusions with extensive atelectasis and pneumonia in the right lower and right middle lobe as well as small calcified mediastinal nodes consistent with granulomas and coronary artery calcifications and atherosclerosis of the aorta. He was on oral iron, and give 200 mg of Venofer IV to partially replace his iron losses from blood draw and CKD III. DISCHARGE DIAGNOSES: 1. Acute hypoxic respiratory failure due to both heart failure and chronic obstructive pulmonary disease and large pleural effusions, resolved. 2. Acute on chronic diastolic heart failure along with valvular heart failure with mild aortic stenosis and marked mitral regurgitation. 3. Severe pulmonary hypertension at 70 mmHg. [facility] [address] [place] [address] DISCHARGE SUMMARY Name: JATIN LIVE Room #: 438-P [facility] IN [facility].#: [id number] Admission: 07/08/19 Attend Phys: Dima Cosme MD Discharge: 07/21/19 Date of : 30 Report #: [id number] 4. Chronic kidney disease stage 3 with nephrotic range proteinuria and 1 functioning kidney (the other is atrophic) -- baseline creatinine is 1.5. The patient was admitted with 1.9 and discharged at 1.7 after significant diuresis. 5. Peripheral artery disease. 6. Type 2 diabetes, on sliding scale insulin. 7. Chronic atrial fibrillation, on Eliquis with a history of a small embolic stroke prior to his starting anticoagulation. 8. Neuropathic bladder with urine retention. 9. Peripheral diabetic neuropathy of diabetes. 10. Distant history of bladder cancer and a transurethral resection of the prostate. 11. Right long finger acute gout, responded to treatment. 12. End-stage osteoarthritis of the left hip. 13. Chronic pain of both shoulder joints. 14. Severe malnutrition. 15. The patient self-caths and had a catheter associated urinary tract infection, for which a course of cephalexin was completed in the hospital. 16. Distant history of PENICILLIN and SULFA allergy. 17. Development of scrotal edema that was almost resolved at discharge. 18. Obstructive sleep apnea, using his home CPAP. 19. Treated glaucoma. 20. Chronic constipation. 21. Severe chronic obstructive pulmonary disease with an FEV1 of 0.772 (34% predicted), FVC 1.35 (46%), FEV1/FVC 57%. PLAN: He is discharged to [facility]. Code status: full code blue patient's choice. I discussed the option of hospice with him, given the severity of his multiple medical problems. He was not interested in hospice, and was eager to begin rehab at [facility] to see what he could regain. Monitor closely for complications of triple diuretics: volume depletion major electrolyte abnormalities weakness acute kidney injury Tim catheter; when stronger and penile edema resolved, he can try to resume self cathing. Repeat urinalysis in a week. DISCHARGE INSTRUCTIONS: A (basic) metabolic profile and CBC is to be drawn every Thursday and until stable. [facility] [address] [place] [address] DISCHARGE SUMMARY Name: JATIN LIVE Room #: 438-P DIS IN M.R.#: [id number] Admission: 07/08/19 Attend Phys: Dima Cosme MD Discharge: 07/21/19 Date of : 30 Report #: [id number] He is to get physical therapy, occupational therapy and speech therapy. He is to see Dr. Cosme in his office in 2 weeks, with lab results and medication list. Acute gout episodes are to be treated with prednisone per the c 40a crew chief: prednisone 50mg,40mg,30mg,20mg,10mg subsequesnt days and then stop. He is not to use uric acid lowering medications. Diet: low sodium mechanical soft (chopped) with thin liquids, take pills in pudding or applesauce. Wash eyelids with no tears shampoo once a day for blepharitis. Pressure stockings or CATALINO wraps to legs daily. MEDICATIONS: Ipratropium/albuterol 1 vial every hour as needed for air hunger and 4 times a day on a routine basis. Eliquis 2.5 mg twice daily. Spironolactone 25 mg daily. Torsemide 40mg morning and again mid day. Metolazone 5 mg every other day. Potassium CL 10 meq twice a day. Budesonide/Pulmicort Respules 0.5 mg twice daily. Low dose sliding scale insulin AC and HS. Diclofenac gel 2 grams 4 times daily as needed to both shoulders for shoulder pain. Diclofenac gel 4 grams 4 times daily as needed to the left hip. Gabapentin 100 mg 3 times daily for neuropathy (this is the maximum dose recommended by the c 40a crew chief and was adjusted in hospital). Polyethylene glycol 17 grams twice daily. Colace 100 mg twice a day. Metamucil fiber singles twice daily for constipation. Pantoprazole 40 mg in the morning for stomach acid. Sliding scale insulin, low dose before meals and bedtime. Atorvastatin 80 mg daily. Combigan eyedrops 1 drop each eye twice daily. Travatan eye drop at bedtime 1 drop in each eye. Ferrous sulfate 325 mg once daily. Vitamin D 2000 units once daily. Fish oil 2000 mg daily. Immediately above and in the body of this report there are physician's transfer [facility] [address] [place] [address] DISCHARGE SUMMARY Name: MARIA TJATIN Room #: 438-P DIS IN M.R.#: [id number] Admission: 07/08/19 Attend Phys: Dima Cosme MD Discharge: 07/21/19 Date of : 30 Report #: [id number] orders that may not appear on the computer generated records that accompanied the patient. For questions, please feel free to call my office at [phone]. By: [id number] Dima Cosme MD /nt
[~2019-07-08 20:28] MED LIST changes: +EFFER-K 10 MEQ10 ME1 PO; +MITIGARE0.6 MG PO; +NORCO 5-325 TA1 EAC1 PO; +SENNA PLUS TAB1 EACH PO; +SLOW FE142 MG PO
[2019-07-08 20:29] VITALS: BP 140/70
[2019-07-08 21:05] LABS: CALCIUM 9.1 mg/dL (8.5-10.1); CREATININE 1.9 mg/dL (0.7-1.3); POTASSIUM 4.4 mmol/L (3.5-5.1)
[2019-07-08 21:06] LABS: HEMATOCRIT 35.9 % (42.0-52.0); HEMOGLOBIN 11.8 gm/dL (14.0-18.0); MCH 29.3 pg (26.0-34.0); MCHC 32.8 g/dL (28.0-37.0); MCV 89.2 fL (80.0-100.0); PLATELET COUNT 230 thou/uL (150-400); RBC 4.02 mil/uL (4.50-6.00); RDW 16.1 % (10.5-14.5); WBC 7.8 thou/uL (4.0-11.0)
[2019-07-08 21:15] LABS: ALBUMIN 2.7 g/dL (3.4-5.0); MAGNESIUM 2.2 mg/dL (1.8-2.4); TOTAL BILIRUBIN 0.5 mg/dL (<0.1-1.0); TROPONIN-I 0.22 ng/mL (<0.06)
[2019-07-08 22:09] LABS: URINE BILIRUBIN NEGATIVE (Negative); URINE BLOOD 2+ (Negative); URINE CLARITY CLOUDY; URINE COLOR YELLOW; URINE GLUCOSE-RANDOM* NEGATIVE (Negative); URINE KETONES NEGATIVE (Negative); URINE NITRITE-REFLEX NEGATIVE (Negative); URINE PROTEIN (DIPSTICK) 2+ (Negative); URINE UROBILINOGEN 0.2 E.U./dl (0.2-1.0)
[2019-07-08 22:12] LABS: URINE LEUKOCYTES-REFLEX 3+ (Negative)
[2019-07-08 22:37] LABS: ABSOLUTE NEUTROPHILS 6.6 thou/uL (1.4-8.2); ANISOCYTOSIS 1+
[2019-07-08 22:47] VITALS: BP 120/71
[2019-07-08 23:06] LABS: CASTS None Seen /LPF (None Seen); MUCUS 0-3 Light strn/LPF (None Seen); SQUAMOUS 0-3 Few /LPF (0-3); URINE WBC-REFLEX >25 Many /HPF (0-5)
[2019-07-08 23:07] LABS: BACTERIA-REFLEX >30 Many /HPF (None Seen); CRYSTALS None Seen /LPF (None Seen); TRANSITIONAL EPITHEL CELL 0-3 Few /LPF (None Seen); URINE RBC 3-10 Few /HPF (0-2)
--- NOTE | 2019-07-08 23:11 | NUR ---
PT HAS GOTTEN A BED ASSIGNMENT. HOWEVER, SHIFT LEADER RELAYED THAT THE FLOOR WOULD NOT BE ABLE TO TAKE REPORT FOR A LITTLE WHILE DUE TO BEING VERY BUSY.
[2019-07-08 23:37] VITALS: BP 120/70
[2019-07-09 00:14] VITALS: BP 122/67
[2019-07-09 05:26] VITALS: BP 125/59
--- NOTE | 2019-07-09 05:58 | NUR ---
PT ARRIVED FROM ER VIA CART, PLACED IN ROOM 350. PT VERY WEAK, UNABLE TO MOVE HIMSELF OFF THE CART AND NEARLY TOTALLY UNABLE TO HELP. NOTED EDEMA IN BOTH LOWER EXTREMITIES. 3+RLE, 4+LLE. ADMISSION ASSESSMENTS COMPLETED. INITIALLY DENIED ANY PAIN BUT THIS MORNING STATES THAT HIS LEG ARE STARTING TO HURT. OFFERED TYLENOL OR POSSIBLY MORPHINE BUT PT DENIED THE NEED FOR ANY PAIN MEDICATION AT THIS TIME. STATED HE WOULD "LET ME KNOW." ALSO NOTED EDEMA TO FINGERS ON THE RIGHT HAND, "I WAS DIAGNOSED WITH GOUT IN THAT HAND." PT STATED THAT HE USES AN ICE PACK TO HELP WITH THAT DISCOMFORT. "I'LL LET YOU KNOW WHEN I NEED ONE."
[2019-07-09 07:12] VITALS: BP 119/63
[2019-07-09 10:57] VITALS: BP 131/71
--- NOTE | 2019-07-09 11:59 | EKG ---
[address] [place] [address] ELECTROCARDIOGRAM REPORT Name: JATIN LIVE Room #: 350-P ADM IN M.R.#: [id number] Admission: 07/08/19 Attend Phys: Aly Awan MD Discharge: Date of : 30 Report #: [id number] THIS REPORT FOR: //name// [facility] ED Test Date: 2019-07-08 Test Time: 21:12:25 Pat Name: JATIN LIVE Department: Room: 350 Gender: M Windows Security Analyst: PRASAD : 1930 Requested By: Drik Sanchez Order Number: [id number] MD: Maykel Stout Measurements Intervals Ward Rate: 67 P: MS: QRS: -42 QRSD: 160 T: 119 QT: 447 QTc: 472 Interpretive Statements Atrial fibrillation Left bundle branch block Compared to ECG 01/10/2015 16:54:48 Left bundle-branch block now present Electronically Signed On 07-09-2019 11:58:50 SAMMYING MACHINE OPERATOR by Maykel Stout [email or web address] <ELECTRONICALLY SIGNED> By: Maykel Stout MD, [facility] 07/09/19 1158 11 11 Maykel Stout MD, FACC /EPI
[2019-07-09 14:27] LABS: BE(vivo) 2.3 mmol/L (-2 to +3); PCO2 42.3 mmHg (35.0-45.0); PO2 68.5 mmHg (80.0-100.0); pH 7.423 (7.360-7.450)
[2019-07-09 15:24] VITALS: BP 121/79
--- NOTE | 2019-07-09 16:33 | NUR ---
pt is A&OX3, pt is on O2 2-3L/MIN/NC, pt's vs and o2sat are stable, pt needs BIPAP when he is sleeping, PT'S DR came to see pt, new order received, pt denies pain and SOB at this time.Cardiology , Nephrology and rehab DRS have consults.
[2019-07-09 19:13] VITALS: BP 123/79
[2019-07-10 04:35] VITALS: BP 129/58
[2019-07-10 04:53] LABS: CALCIUM 9.2 mg/dL (8.5-10.1); CREATININE 1.8 mg/dL (0.7-1.3); POTASSIUM 4.8 mmol/L (3.5-5.1); TROPONIN-I 0.24 ng/mL (<0.06)
[2019-07-10 08:00] VITALS: BP 123/70
--- NOTE | 2019-07-10 08:06 | NUR ---
PT MAKING SLOW PROGRESS TOWARDS GOALS. CONTINUES TO STATE THAT HE STILL FEELS WEAK AND REQUIRES NEAR TOTAL ASSISTANCE WITH TURNING IN BED. HE IS MAKING AN EFFORT TO MOVE AND ASSIST HIMSELF. IS REQUESTING TO ATTEMPT TO SIT AT THE BEDSIDE BEFORE BREAKFAST. STATES HE IS MOTIVATED TO GET HIS MOBILITY BACK MUCH POSSIBLE.
[2019-07-10 12:04] VITALS: BP 127/62
[2019-07-10 15:54] VITALS: BP 126/70
--- NOTE | 2019-07-10 16:40 | NUR ---
PT is A&OX3, PT is continuing o2 1-2 L/MIN/NC, PT needs CIPAP when pt is sleeping, pt has SOB with activities, pt gets up to sit bedside for meals with help, pt 's vs and BS are stable , pt denies pain at this time.
[2019-07-10 19:33] VITALS: BP 123/65
--- NOTE | 2019-07-10 21:42 | H ---
[facility] [place] [address] HISTORY AND PHYSICAL Name: JATIN LIVE Room #: 350-P ADM IN M.R.#: [id number] Admission: 07/08/19 Attend Phys: Dima Cosme MD Discharge: Date of : 30 Report #: [id number] THIS REPORT FOR: //name// CC: Kerrie Stout MD [facility] Dima Darling MD DATE OF SERVICE: 07/09/2019 CHIEF COMPLAINT: "I am too weak to stand." HISTORY OF PRESENT ILLNESS: The patient is an 89-year-old white male who lives alone and is currently looking into moving to assisted living facility. In the last several days, he was seen in the Emergency Room prior to this admission, with current complaints of shortness of breath and right third finger pain. He was diagnosed with an acute flare of gout for the latter, but absolutely refused inpatient admission and workup of the shortness of breath issue. On the date of this admission, he felt that he was getting worse and came to the Emergency Room for further evaluation and treatment and to be admitted. PAST MEDICAL HISTORY: Very extensive. The patient has a history of hypertension, hyperlipidemia, and permanent atrial fibrillation. 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 He has multiple surgeries including right knee replacement, left knee replacement, right total hip replacement, I believe twice. He has obstructive sleep apnea and uses CPAP at home. He has peripheral neuropathy. He has type 2 diabetes mellitus. He claims to have had a mild stroke several years ago. He had bladder tumors that were removed x 2 in the , one of them was malignant, he tells me. This was when he was living in [place]. He also has moderately severe presbycusis, history of skin cancer. He has had prostate surgery twice for benign prostate hypertrophy. He currently self-caths at home 3-4 times a day. He has had left shoulder surgery in 1955. He reports that he gets chronic urinary tract infections as well. ALLERGIES: HE IS ALLERGIC TO PENICILLIN AND SULFA. MEDICATIONS: At home, he has been taking ProAir HFA inhaler, ferrous sulfate daily for iron replacement. He takes apixaban 5 mg twice daily, atorvastatin 80 mg by mouth nightly, fish oil 2000 mg by mouth daily, gabapentin 600 mg 3 times daily, potassium bicarbonate/citric acetate Effer-K 10 mEq by mouth daily, furosemide 40 mg daily, Breo Ellipta 200/25 one puff orally daily, Combigan eyedrops 1 drop in each eye twice daily. There is also Travatan eyedrops 1 drop each eye at bedtime, docusate sodium 100 mg by mouth twice a day, pantoprazole 40 mg by mouth daily, vitamin D 2000 units by mouth daily, alpha lipoic acid 600 mg capsules 2 capsules by mouth daily. [address] [address] HISTORY AND PHYSICAL Name: JATIN LIVE Room #: 350-P [facility] IN ..#: [id number] Admission: 07/08/19 Attend Phys: Dima Cosme MD Discharge: Date of : 30 Report #: [id number] SOCIAL HISTORY: He lives alone. He does have a son who lives in the community and a granddaughter too, I believe. 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 His son lives in [place], [place]. The patient is normally cared for by Dr. Dima Cosme and his specialists include Dr. Sapp from Nephrology, Dr. Stout from Cardiology, and Dr. Gurwinder Darling from Pulmonary Medicine. FAMILY HISTORY: Significant for longevity. REVIEW OF SYSTEMS: Appetite has been poor recently. The patient has felt increasingly weak, especially due to arthritis in his left hip. He states that he cannot get up to walk independently at this time. He denies chest pain. He does have very significant shortness of breath and gets winded even trying to cross the room. He does sleep with extra pillows because of orthopnea. No chest pain. No new back pain. He does have constipation. Sometimes, he does self-cath 3-4 times a day for urination. PHYSICAL EXAMINATION: VITAL SIGNS: In the Emergency Room on arrival, his temperature was 36.4 degrees centigrade, pulse 81, blood pressure 140/70, respirations 22, oxygen saturation of 94% on 2 liters per nasal cannula per minute, and his weight was recorded at 192.8 pounds. GENERAL: The patient is a pleasant, somewhat gregarious elderly white male, who is wearing supplemental oxygen, but is not in distress when seated in bed with his head up at 45 degree angle. HEENT: Extraocular muscles are intact. Oropharynx is moist and pink. No lesions, no exudates. Sinuses nontender. Hearing is extremely poor bilaterally. NECK: Without adenopathy or thyromegaly or mass or bruit. LUNGS: Coarse bilaterally with dullness, especially in the right base as compared to the left. Occasional wheezes are heard. No retractions, no tachypnea. CARDIOVASCULAR: Distant and irregularly irregular. ABDOMEN: Soft. Bowel sounds are present, no visceromegaly or masses. EXTREMITIES: Without cyanosis or clubbing. There is bilateral lower extremity 2+ pitting edema. There is as beckham skin abrasion on the right side. It is very small, less than a centimeter in diameter, and has as an appropriate wound covering on it. NEUROLOGIC: The patient has bilateral stocking sensory deficits that are quite dense. It does not affect his upper extremities. His motor exam is otherwise intact. Cranial nerves 2-12 are intact. ASSESSMENT AND PLAN: 1. Congestive heart failure, systolic and diastolic, acute and chronic. We will get an echocardiogram to see if there is a change in his underlying cardiomyopathy. Cardiology consult with Dr. Stout and although the patient [facility] [address] [place] [address] HISTORY AND PHYSICAL Name: JATIN LIVE Room #: 350-P ADM IN M.R.#: [id number] Admission: 07/08/19 Attend Phys: Dima Cosme MD Discharge: Date of : 30 Report #: [id number] has mildly elevated troponin levels, I think we can attribute this to his kidney disease. We will obtain another set and await the echocardiogram. 2. Acute kidney injury on chronic kidney disease. The patient's creatinine is, I think, at 1.9 on admission and his BUN has been floating with 100. Nephrology consult ordered. Aggressive fluid management will be challenging in the face of the nephrotic kidney. We will start some intravenous Lasix while awaiting the Nephrology plan consultant's recommendations. 3. Right third finger gout exacerbation. That digit is markedly enlarged and red and exquisitely tender. I have started him on colchicine and intravenous steroids. At some point, he might be a good candidate for allopurinol. At the moment, I will defer on adding that medicine until Dr. Cosme has had a chance to review the records. 4. Chronic urinary tract infection in the setting of benign prostatic hypertrophy and recurrent self-catheterizations. His last positive urine culture at [facility] and that was in 08/2018. Please see my comments with regards to that circumstance and the patient's underlying drug allergies. I have started him on minocycline 100 mg twice a day for 7 days. He has a Tim catheter, which was placed in the Emergency Room. We will leave that for now, but plan to have it removed of course before he is discharged. 5. Permanent atrial fibrillation, rate well controlled. No additional recommendations. 6. Severe peripheral neuropathy for which the patient is currently taking gabapentin. We will continue it. 7. Right small skin ulcer on the beckham that seems like an abrasion and has a protective dressing. No other recommendations at this time. 8. Obstructive sleep apnea for which the patient uses CPAP at home. We will resume CPAP here and address any other issues that may come up. 9. Type 2 diabetes mellitus with serial Accu-Cheks. I expect his blood sugars to run rather high in the short term because of the intravenous steroids, we will be giving him for the gout. 10. General debility. PT and OT and rehabilitation have been ordered. 11. Chronic and past issues include osteoarthritis of the left hip and the need for surgery at some point, bladder tumors with history of a single malignant cancer one, skin cancer history, and moderately severe presbycusis. <ELECTRONICALLY SIGNED> By: Nba Penny MD 07/10/19 [phone] Nba Penny MD /nt
[2019-07-11 04:28] VITALS: BP 126/69
--- NOTE | 2019-07-11 06:15 | NUR ---
FOLLOWING POC WITH IV AND PO MEDICATIONS. PT ON CONTINUOS PULSE OX, DESATS WHEN HE TALKS IN GREAT AMOUNTS. CPAP ON AT 2100 AND STILL ON AT THIS POINT. PT A/O X4. PT BARELY ASSIST IN TURNS. VSS AND PT HAS NO COMPLAINTS. CALL LIGHT WITHIN REACH.
[2019-07-11 06:41] LABS: ALBUMIN 2.5 g/dL (3.4-5.0); CALCIUM 9.6 mg/dL (8.5-10.1); CREATININE 1.8 mg/dL (0.7-1.3); PHOSPHORUS 4.5 mg/dL (2.5-4.9); POTASSIUM 4.6 mmol/L (3.5-5.1)
[2019-07-11 08:02] VITALS: BP 129/58
--- NOTE | 2019-07-11 10:09 | EKG ---
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
--- NOTE | 2019-07-11 11:06 | HC ---
[facility] [place] [address] CONSULTATION Name: JATIN LIVE Room #: 350-P ADM IN M.R.#: [id number] Admission: 07/08/19 Attend Phys: Dima Cosme MD Discharge: Date of : 30 Report #: [id number] THIS REPORT FOR: //name// CC: Dima Cosme DATE OF SERVICE: 07/09/2019 REASON FOR CONSULTATION: Shortness of breath. HISTORY OF PRESENT ILLNESS: The patient is an 89-year-old gentleman with permanent atrial fibrillation, chronic left bundle-branch block, nephrotic-range proteinuria with chronic kidney disease, diabetes, remote cardioembolic stroke, and dyslipidemia. He now presents with generalized weakness and shortness of breath. He has had more than usual lower extremity edema. He denies orthopnea or paroxysmal nocturnal dyspnea. He has had a terrible time getting around due to osteoarthritis of his hip. It is with this combination of problems that he presented to the Emergency Department and was admitted. His creatinine on admission was 1.9 with a proBNP of 19,000. Troponin levels have been chronically and minimally elevated and this admission is no different than previously. He denies chest heaviness, pressure or ischemic type symptoms. He has had no bleeding problems with apixaban. MEDICATIONS: Include albuterol, apixaban 5 mg twice daily, Lipitor 80 mg daily, iron one tablet daily, Breo Ellipta 1 inhalation daily, Neurontin, Protonix 40 mg daily, potassium 10 mEq daily, torsemide 40 mg twice daily. PAST MEDICAL HISTORY: Medical records have been reviewed and include a history of bilateral knee replacements, bladder tumor excision, permanent atrial fibrillation, prior cardioembolic stroke. He has sleep apnea for which he uses CPAP. A single functioning kidney with nephrotic-range proteinuria, hypertension, diabetes. SOCIAL HISTORY: He is a nonsmoker. ALLERGIES: He is allergic To PENICILLIN AND SULFA. FAMILY HISTORY: Unremarkable for premature coronary artery disease. REVIEW OF SYSTEMS: All systems negative except as that noted above. PHYSICAL EXAMINATION: GENERAL: Reveals an elderly gentleman, who is alert and in no distress. VITAL SIGNS: Blood pressure is 120/70, heart rate of 90 and irregular. He is afebrile, 5 feet 7 inches tall, 192 pounds. His dry weight is about 180 pounds. HEENT: There are neither xanthelasma, subcutaneous xanthomata, oral mucosal or digital cyanosis or kyphoscoliosis present. [facility] [address] [place] [address] CONSULTATION Name: JATIN LIVE Room #: 350-P [facility] IN .R.#: [id number] Admission: 07/08/19 Attend Phys: Dima Cosme MD Discharge: Date of : 30 Report #: [id number] CHEST: Clear to auscultation and percussion. CARDIAC: An irregularly irregular rhythm with normal S1, S2. Jugular venous pressure is elevated to the angle of the mandible. ABDOMEN: Soft, obese and nontender. EXTREMITIES: With 1-2+ pitting edema. Radial pulses are 2+. NEUROLOGIC: He is alert with a nonfocal exam. EKG: Atrial fibrillation with left bundle-branch block. LABORATORY DATA: Sodium is 131, potassium 4.4, creatinine 1.9. ProBNP of 19,000. White count 7.8, hemoglobin 11, hematocrit 35, platelet count 230. Chest x-ray demonstrates small bilateral pleural effusions. IMPRESSION: 1. Permanent atrial fibrillation. 2. Yesbd-ho-gwqhvlk diastolic heart failure. 3. Chronic kidney disease; solitary kidney with nephrotic-range proteinuria. 4. Diabetes. 5. Sleep apnea. 6. Osteoarthritis. 7. History of bladder cancer. 8. Hypercoagulable. Recommendations: IV Lasix. 9. Atrial fibrillation, rates are well controlled. Salt restriction discussed. Continued anticoagulant therapy recommended. 10. His left bundle-branch block is longstanding. An echocardiogram has been ordered to exclude interval development of cardiomyopathy. Thank you for asking me to participate in his care. <ELECTRONICALLY SIGNED> By: Maykel Stout MD, FACC 07/11/19 1106 1806 [id number] Maykel Stout MD, FACC /nt
[2019-07-11 11:22] VITALS: BP 126/71
--- NOTE | 2019-07-11 11:40 | 2DMMODE ---
[facility] [address] [place] [address] 2 D/M-MODE ECHOCARDIOGRAM Name: ROBERTJATIN WAHL Room #: 350-P ADM IN M.R.#: [id number] Admission: 07/08/19 Attend Phys: Dima Cosme, Discharge: Date of : 30 Report #: [id number] THIS REPORT FOR: //name// APPROVED REPORT Study performed: 07/11/2019 09:15:06 EXAM: Comprehensive 2D, Doppler, and color-flow Echocardiogram Patient Location: Bedside Room #: 350 Status: routine BSA: 1.99 HR: 64 bpm BP: 129/58 mmHg Rhythm: Atrial Fibrillation Other Information Study Quality: Adequate Indications Congestive Heart Failure Atrial Fibrillation Elevated Troponin SOB 2D Dimensions RVDd: 48.77 mm IVSd: 11.76 (7-11mm) LVOT Diam: 21.86 (18-24mm) LVDd: 50.04 mm PWd: 10.60 (7-11mm) Ascending Ao: 33.70 (22-36mm) LVDs: 39.83 (25-40mm) Aortic Root: 31.41 mm IVC: 24.00 mm Volumes Left Atrial Volume (Systole) Single Plane 4CH: 113.76 mL Single Plane 2CH: 232.06 mL LA ESV Index: 87.00 mL/m2 Aortic Valve AoV Peak John.: 1.98 m/s AO Peak Gr.: 15.68 mmHg LVOT Max P.51 mmHg AO Mean Gr.: 8.27 mmHg LVOT Mean P.67 mmHg AO V2 Mean: 1.34 m/s LVOT Max V: 0.62 m/s AO V2 VTI: 35.22 cm LVOT Mean V: 0.36 m/s ROBERT (VTI): 1.30 cm2 LVOT V1 VTI: 12.19 cm [facility] [employer] [place] [address] 2 D/M-MODE ECHOCARDIOGRAM Name: JATIN LIVE Room #: 350-P [facility] IN M.R.#: [id number] Admission: 07/08/19 Attend Phys: Dima Cosme, Discharge: Date of : 30 Report #: [id number] ROBERT Vmax: 1.17 cm2 AI Vmax: 3.42 m/s SV (LVOT): 45.74 mL AI Cache: 1.78 m/s2 AI PHT: 560.37 ms Mitral Valve E/A Ratio: 2.9 MV Decel. Time: 184.73 ms MV E Max John.: 1.02 m/s MV A John.: 0.35 m/s MV PHT: 53.57 ms IVRT: 62.28 ms Pulmonary Valve PV Peak John.: 0.71 m/s PV Peak Gr.: 2.02 mmHg Tricuspid Valve TR Peak John.: 3.81 m/s RAP Estimate: 15.00 mmHg TR Peak Gr.: 58.21 mmHg PA Pressure: 73.00 mmHg Left Ventricle The left ventricle is normal size. There is normal LV segmental wall motion. Borderline concentric left ventricular hypertrophy. The left ventricular systolic function is normal. The left ventricular ejection fraction is within the normal range. LVEF is 50-55%. Discordant septal motion. Right Ventricle Right ventricle is mild to moderately dilated. The right ventricular systolic function is normal. Atria Left atrium is severely dilated. Right atrium is severely dilated. Aortic Valve Aortic valve is moderately calcified, trileaflet. Mild aortic regurgitation. There is mild to moderate valvular aortic stenosis. Calculated aortic valve area is 1.3 cm2 with maximum pressure gradient of 16 mmHg and mean pressure gradient of 8.3 mmHg. Mitral Valve Mitral valve leaflets are mildly sclerotic. Severe mitral regurgitation. No evidence of mitral valve stenosis. [facility] [address] [place] [address] 2 D/M-MODE ECHOCARDIOGRAM Name: JATIN LIVE Room #: 350-P [facility] IN .R.#: [id number] Admission: 07/08/19 Attend Phys: Dima Cosme, Discharge: Date of : 30 Report #: [id number] Tricuspid Valve The tricuspid valve is normal in structure. Moderate to severe tricuspid regurgitation. PAP is estimated at 70 mmHg Pulmonic Valve The pulmonary valve is normal in structure. Trace to mild pulmonic regurgitation. Great Vessels The aortic root is normal in size. IVC is dilated and collapses <50% with inspiration. Pericardium There is no pericardial effusion. <Conclusion> The left ventricular systolic function is normal. There is normal LV segmental wall motion. LVEF is 50-55%. Discordant septal motion. Right ventricle is mildly dilated. Both atria are severely dilated. Aortic valve is moderately calcified, trileaflet. Mild aortic regurgitation, very mild stenosis. Mitral valve leaflets are mildly sclerotic. Severe mitral regurgitation. Moderate to severe tricuspid regurgitation. Pulmonary artery pressure estimated at 70 mmHg There is no pericardial effusion. <ELECTRONICALLY SIGNED> By: Maykel Stout MD, FACC 07/11/19 1140 1140 1140 Maykel Stout MD, FACC /INF
[2019-07-11 15:22] VITALS: BP 112/58
--- NOTE | 2019-07-11 15:41 | NUR ---
DISCHARGE PLANNING. ANTICIPATED DISCHARGE LATER THIS WEEK. POST ACUTE RECOMMENDED AT DISCHARGE. PATIENT REFERRAL FAXED TO [facility] FOR POST ACUTE CARE NEEDS. CALL PLACED TO [facility] TO NOTIFY OF PATIENT REFERRAL AND PATIENTS DISCHARGE NEEDS. AWAITING RESPONSE. FOLLOWING.
--- NOTE | 2019-07-11 16:15 | NUR ---
INITIAL ASSESSMENT: Received consult. MARGE reviewed chart and spoke with nursing. Pt was admitted from [facility] [place], operated by [facility] due to CHF. Pulmonary consulted today. Pt is on IV steroids. 5N consult ordered to evaluate pt. MARGE met with pt at bedside. Introduced role of SW. Pt is alert/orientated x 4. Pt reports he lives a citlaly alone in an apt at [facility]. Prior to admission, pt was using a walker in his apt and a motorized scooter for long distances. MARGE discussed discharge plan. Pt states he would like to go to [facility] and then transition to their AL facility after rehab. 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 Pt's PCP is Dr. Cosme. MARGE discussed referral process to [facility]. Pt verbalized understanding. menu planner to fax SNF referral to [facility] for review. MARGE is following to assist as needed with discharge planning.
--- NOTE | 2019-07-11 17:02 | NUR ---
pt is A&OX3, pt is on o2 1-2 L/MIN/NC, PT still has SOB with activities, pt's vs are stable, pt has working PT and OT, RN has called DR to report pt's constipation , new order fleet enema at 1600pm, pt has soft stool at 1640pm, pt fells better.
[2019-07-11 19:15] VITALS: BP 128/74
[2019-07-12 04:00] VITALS: BP 120/76
--- NOTE | 2019-07-12 05:45 | NUR ---
PT HAS ABILITY TO TAKE PILLS WHOLE, ONE AT A TIME. BLLE +3 DRY AND PITTING. REMOVED COMPRESSION SOCKS AND DESIGN OF SOCK WAS LEFT ON SKIN OF LEGS. DR SWAIN PUT NEW ORDER IN FOR CATALINO WRAP ON LEGS IN THE AM, AND PRN FLEET ENEMA FOR CONSTIPATION. PT STATES NO NAUSEA. ONLY PAIN PT STATES IS WHEN MOVING PATIENT. PT RESTED COMFORTABLY WITH CPAP OVERNIGHT.
[2019-07-12 07:24] LABS: ALBUMIN 2.6 g/dL (3.4-5.0); CALCIUM 9.6 mg/dL (8.5-10.1); CREATININE 1.7 mg/dL (0.7-1.3); PHOSPHORUS 5.1 mg/dL (2.5-4.9); POTASSIUM 4.8 mmol/L (3.5-5.1)
[2019-07-12 07:25] VITALS: BP 127/77
[2019-07-12 11:05] VITALS: BP 114/66
--- NOTE | 2019-07-12 16:02 | NUR ---
pt is A&OX3, PT gets up to bedside at meal time, pt needs o2 1-2 l/min/nc with activities, pt's vs are stable, pt denies pain at this time.
--- NOTE | 2019-07-12 16:04 | NUR ---
SW reviewed chart and spoke with nursing. Pt is progressing towards goals for discharge. [facility] can accept pt. MARGE met with pt's son, Remigio, to discuss discharge plan. Pt's son states that pt is also interested in [facility]. SW updated that [facility] can accept. capacity planner to fax referral to [facility] for review. Pt's son has toured and spoken with both facilities. MARGE updated attending physician. MARGE is following to assist as needed with discharge planning.
[2019-07-12 16:50] VITALS: BP 135/76
[2019-07-12 19:09] VITALS: BP 130/67
[2019-07-13 04:19] VITALS: BP 120/69
--- NOTE | 2019-07-13 05:13 | NUR ---
PT MAKING SLOW PROGRESS TOWARDS GOALS. PT REPORTING THAT HE STILLS FEELS WEAK BUT LESS SO COMPARED TO WHEN HE WAS ADMITTED. NURSING REPORTED STATED THAT PT HAS BEEN UP TO THE BED SIDE COMMODE BUT STILL WITH TWO PERSON ASSIST. DENIES ANY SOA.
[2019-07-13 05:48] LABS: ALBUMIN 2.5 g/dL (3.4-5.0); CREATININE 1.6 mg/dL (0.7-1.3); POTASSIUM 4.5 mmol/L (3.5-5.1)
[2019-07-13 07:20] VITALS: BP 124/76
[2019-07-13 11:17] VITALS: BP 118/73
--- NOTE | 2019-07-13 16:17 | NUR ---
MARGE reviewed chart and spoke with nursing and attending physician. [facility] liaison came by earlier today and states they can accept pt. Discharge is anticipated in 1-2 days. MARGE met with pt at bedside to discuss discharge plan. [facility]. Pt states that his preference [facility]. Pt to start in SNF and then transition to AL. MARGE spoke with pt's son via phone to update. All in agreement with discharge plan. [facility] updated. MARGE is following to assist as needed with discharge planning.
[2019-07-13 16:47] VITALS: BP 123/73
--- NOTE | 2019-07-13 18:33 | NUR ---
PT WORKED WITH PT & OT. WOUND PICS & WOUND CARE PROVIDED. LEG WRAPS IN PLACE PER PATIENT REQUEST. MCGHEE PATENT. PATIENT TRANSITIONED TO PO ANTIBIOTICS INSTEAD OF IV ABX. FALL PRECAUTIONS IN PLACE. CALLS FOR ASSIST. FIBER ORDERED PER DR. SWAIN AND PT REQUEST.
[2019-07-13 19:37] VITALS: BP 115/57
[2019-07-14 04:20] VITALS: BP 121/62
--- NOTE | 2019-07-14 04:54 | NUR ---
PT MAKING SLOW PROGRESS TOWARDS GOALS. ON O2 AT 2L PER NC. WILL ASK DAY RN TO BEGIN TO TITRATE DOWN ON OXYGEN USE APPROPRIATE. WEARS CPAP OVERNIGHT THOUGH PT IS OFTEN OBSERVED WITH HIS MOUTH OPEN. DENIES PAIN, OR NEED FOR ANY PAIN MEDICATIONS. NO COMPLAINTS VOICED OVERNIGHT.
[2019-07-14 07:26] VITALS: BP 118/63
[2019-07-14 11:34] VITALS: BP 119/69
--- NOTE | 2019-07-14 13:09 | NUR ---
Nutrition: pt seen due to notification of low purine diet instruction due to gout in diet order comments section. Pt reports limits salt at home. RD had much difficulty educating pt as he was very upset and complaining about the foods/choices. Has been ordering meals. RD assisted pt in ordering next 2 meals and allowed pt chicken strips which pleased him. Intake documented as > 70% of meals. Provided handout on low purine diet and discussed basic points. Pt discharging to SNF likely tomorrow. Stable weights. Low nutrition risk.
--- NOTE | 2019-07-14 14:56 | NUR ---
PT ASSIGNED TO 438 AT THIS TIME.
--- NOTE | 2019-07-14 14:59 | NUR ---
SW reviewed chart and spoke with nursing and attending physician. Pt is progressing towards goals for discharge. [facility] able to accept pt tomorrow. MARGE met with pt at bedside to provide update. Pt is aware and in agreement with discharge plan. MARGE spoke with pt's son, Isidoro, via phone to provide update as well. MARGE is following to assist as needed with discharge planning.
--- NOTE | 2019-07-14 16:58 | NUR ---
PT is A&OX3, but pt is forgetful, pt is continuing o2 2l/min/nc and po abx, pt's vs and o2sat are stable, pt gets up to BSC with walker , pt's video swallow study results are normal , pt has transfered 4S room 438 at 1640pm.
--- NOTE | 2019-07-14 18:29 | NUR ---
ASSUMED CARE OF THE PT AT 1630. PT IS A HIGH FALL RISK. PT HAS NO C/O PAIN. PT LUNGS ARE CLEAR AND PULSES ARE STRONG. PT IS UP TO BEDSIDE COMMODE WITH ASSIST AND GAITBELT. PT IS ON 2.0L NASAL CANNULA AND BIPAP. FALL PRECAUTIONS ARE IN PLACE, BED IN LOWEST POSITION AND CALL LIGHT IS WITHIN REACH. WILL CONTINUE TO MONITOR THE PT.
[2019-07-14 20:34] VITALS: BP 122/60
[2019-07-15] VITALS: BP 144/69
--- NOTE | 2019-07-15 03:28 | NUR ---
Patient making slow progress towards outcome goals. Vital signs stable. Oxygenation optimal with 2L/NC and tolerating CPAP. High fall risks, fall precautions in place. Uses call ligh appropriately for needs. Requires continued need for indwelling alex catheter for urinary retention.
[2019-07-15 05:41] VITALS: BP 132/67
[2019-07-15 06:13] LABS: HEMATOCRIT 37.9 % (42.0-52.0); HEMOGLOBIN 12.3 gm/dL (14.0-18.0); MCH 28.8 pg (26.0-34.0); MCHC 32.4 g/dL (28.0-37.0); MCV 88.9 fL (80.0-100.0); PLATELET COUNT 210 thou/uL (150-400); RBC 4.27 mil/uL (4.50-6.00); WBC 6.6 thou/uL (4.0-11.0)
[2019-07-15 06:19] LABS: CREATININE 1.4 mg/dL (0.7-1.3); POTASSIUM 3.3 mmol/L (3.5-5.1)
[2019-07-15 08:49] LABS: ABSOLUTE NEUTROPHILS 5.3 thou/uL (1.4-8.2); PLATELET ESTIMATE NORMAL
[2019-07-15 09:02] VITALS: BP 130/70
--- NOTE | 2019-07-15 12:24 | NUR ---
Following for d/c planning needs. Dr Cosme said that pt will need CT scan today. He is aware that transportation to facility will not be available after 1600. Chart copied.
--- NOTE | 2019-07-15 15:53 | NUR ---
ASSUMED CARE OF THE PT AT 0700. PTS LUNGS ARE CLEAR AND PT BECOMES SOA WHEN UP AD MAGALIE. PT USES BEDSIDE COMMODE AND HAD A BM TODAY. 2.0L O2 NASAL CANNULA. TOWEL IS PLACED UNDER SCROTUM FOR COMFORT. SKIN IS CLEAR. MCGHEE INTACT AND POTENT. R AC SALINE LOCKED, DRY AND INTACT. FALL PRECAUTIONS IN PLACE. BED IN LOWEST POSITION AND CALL LIGHT IS WITHIN REACH. WILL CONTINUE TO MONITOR THE PT.
[2019-07-15 18:04] VITALS: BP 120/64
[2019-07-15 19:50] VITALS: BP 120/58
--- NOTE | 2019-07-16 01:05 | NUR ---
ASSESSMENT COMPLETED. PT IS ALERT AND ORIENTED. HE IS [place]. DENIES PAIN. BLE WRAPS REMOVED AT BEDTIME AND BLE ELEVATED ON PILLOWS-SCDS ALSO IN PLACE. PT USING 02/2L AND HAS SOA WITH EXERTION. SCROTUM ELEVATED.MCGHEE TO D/D WITH LIGHT YELLOW URINE. WILL CONTINUE WITH POC TILL EOS.
[2019-07-16 03:50] VITALS: BP 121/58
[2019-07-16 07:39] LABS: ALBUMIN 2.5 g/dL (3.4-5.0); CALCIUM 9.4 mg/dL (8.5-10.1); CREATININE 1.4 mg/dL (0.7-1.3); PHOSPHORUS 5.1 mg/dL (2.5-4.9); POTASSIUM 3.3 mmol/L (3.5-5.1); URIC ACID* 9.6 mg/dL (2.6-7.2)
[2019-07-16 08:22] VITALS: BP 128/71
--- NOTE | 2019-07-16 14:07 | NUR ---
PT CARE ASSUMED AT 0700. A&Ox4. 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 PT IS IN HIS ROOM SITTING AT THE EDGE OF HIS BED. PT REFUSES SCD'S DURING THE DAY AND ONLY WANTS HIS CATALINO WRAPS ON DURING THE DAY. PT WANTS CATALINO WRAPS OFF AT NIGHT AND SCD'S ON. BED ALARM IS ON, LOW POSITION, LOCKED. CALL LIGHT IN REACH.
[2019-07-16 17:00] VITALS: BP 141/69
[2019-07-16 19:45] VITALS: BP 114/59
--- NOTE | 2019-07-17 02:06 | NUR ---
ASSUMED PT CARE AT 1900. PT REPORTS NO PAIN. STATES HE IS CONCERNED ABOUT PROCEDURE ON THURSDAY BUT READY TO FEEL BETTER. PM MEDS GIVEN ORDERED. BIPAP ON AND SLEEPING MOST THE NIGHT. WILL CONTINUE TO MONITOR.
[2019-07-17 04:54] LABS: CALCIUM 9.4 mg/dL (8.5-10.1); CREATININE 1.3 mg/dL (0.7-1.3); MAGNESIUM 1.9 mg/dL (1.8-2.4)
[2019-07-17 05:00] LABS: POTASSIUM 2.9 mmol/L (3.5-5.1)
[2019-07-17 07:39] VITALS: BP 123/55
[2019-07-17 15:33] VITALS: BP 122/61
--- NOTE | 2019-07-17 18:12 | NUR ---
PT A&OX4. IV INTACT IN R AC. AMBULATES TO BSC WITH WALKER AND ASSIST X1.O2 @ 2L PER NC. WEARS C PAP AT [facility]. PT HAS C/O NEUROPATHY PAIN THROUGHOUT THE DAY. CALL LIGHT W/I REACH BED ALARM IS ON.
[2019-07-17 19:40] VITALS: BP 126/71
--- NOTE | 2019-07-18 02:26 | NUR ---
PT PRESENTS SUPINE, AOX4 WITH IRRITABLE MOOD. PT DENIES PAIN. PT NOTED TO HAVE SOB WITH EXERTION AND OBSERVED PURSED LIP BREATHING ON 2L VIA NC WHILE AWAKE. CPAP 5L QHS.PT TOLERATING PO INTAKE WITHOUT ISSUE. CONTINUES TO REST IN BED THROUGHOUT SHIFT. ENCOURAGED FREQUENT REPOSITIONING. PT RECEPTIVE TO EDUCATION REGARDING PROMOTION OF SKIN INTEGRITY. PT ANTICIPATING THORACENTESIS TODAY. ENCOURAGED PT TO NOTIFY STAFF FOR ALL NEEDS. CALL LIGHT WITHIN REACH, BED AT LOWEST POSITION, BED ALARM ON. WILL CONTINUE TO MONITOR.
[2019-07-18 02:48] VITALS: BP 131/72
[2019-07-18 05:50] LABS: HEMATOCRIT 38.3 % (42.0-52.0); HEMOGLOBIN 12.3 gm/dL (14.0-18.0); MCH 28.5 pg (26.0-34.0); MCHC 32.1 g/dL (28.0-37.0); MCV 88.8 fL (80.0-100.0); RBC 4.31 mil/uL (4.50-6.00); RDW 16.1 % (10.5-14.5); WBC 9.3 thou/uL (4.0-11.0)
[2019-07-18 06:12] LABS: ALBUMIN 2.6 g/dL (3.4-5.0); CALCIUM 9.6 mg/dL (8.5-10.1); CREATININE 1.6 mg/dL (0.7-1.3); PHOSPHORUS 4.3 mg/dL (2.5-4.9); POTASSIUM 4.3 mmol/L (3.5-5.1)
[2019-07-18 06:36] LABS: APTT 26.1 Seconds (24.5-32.8); INR 1.1; PROTIME 11.7 Seconds (9.3-11.4)
[2019-07-18 07:45] VITALS: BP 117/60
[2019-07-18 12:10] LABS: COLOR YELLOW; SOURCE THORACENTESIS; TOTAL VOLUME 60 mL
[2019-07-18 12:11] LABS: CLARITY SLIGHTLY CLOUDY
[2019-07-18 12:47] LABS: BF NUCLEATED CELLS 187; BF RBC 682
--- NOTE | 2019-07-18 13:48 | NUR ---
ASSUMED CARE OF THE PT AT 0700. PT IS ON 2.5 L OF O2 NASAL CANNULA. PT IS UP WITH WALKER TO BEDSIDE COMMODE. PT SLEEPS SUPINE. THORACENTESIS DONE IN THE AM, PT C/O SORENESS WHERE PROCEDURE WAS DONE, NO BLEEDING NOTICED. PT POTASSIUM IS 4.3. PT REFUSED TO ELEVATE SCROTUM. BS CONTROLLED WITH INSULIN, SEE EMAR. BED IN LOWEST POSITION, CALL LIGHT IS WITHIN REACH AND FALL PRECAUTIONS ARE IN PLACE. WILL CONTINUE TO MONITOR THE PT.
[2019-07-18 13:57] LABS: BF MACROPHAGE 42; BF NEUTROPHILS 4
--- NOTE | 2019-07-18 14:41 | NUR ---
Sheridan Cantor updated both over the phone and clinical via fax. Pt was tapped this am. All parties anticipating dc to SNF there tomorrow. They have a bed ready for him. Care team updated.
[2019-07-18 16:22] VITALS: BP 113/72
[2019-07-18 19:38] VITALS: BP 125/58
[2019-07-19 04:20] VITALS: BP 139/71
--- NOTE | 2019-07-19 05:40 | NUR ---
faxed updates to aguustine ramachandran to [place]
[2019-07-19 06:28] LABS: ALBUMIN 2.3 g/dL (3.4-5.0); CALCIUM 9.2 mg/dL (8.5-10.1); CREATININE 1.5 mg/dL (0.7-1.3); PHOSPHORUS 4.2 mg/dL (2.5-4.9); POTASSIUM 3.4 mmol/L (3.5-5.1)
--- NOTE | 2019-07-19 07:48 | NUR ---
PT AOX4 WITH IRRITABLE MOOD EPISODES. PT DENIES PAIN. OBSERVED WITH SOB WHILE ON 2.5L O2 EVIDENCE BY PURSED LIP BREATHING. ELEVATED HOB, OBSERVED PT CONDITION IMPROVING. PT NOTED TO HAVE FRAGILE SKIN. 1-2X ASSIST WITH TRANSFERS FROM BED TO CHAIR, BED TO COMMODE. PT CONTINUES TO HAVE UNSTEADY GAIT WHEN GETTING UP. TOLERATING PO INTAKE WITHOUT ISSUE. MCGHEE CATHETER PATENT AND FLOWING WITHOUT ISSUE. ENCOURAGED PT TO NOTIFY STAFF FOR ALL NEEDS. BED ALARM ON, CALL LIGHT WITHIN REACH, BED IN LOWEST POSITION. WILL CONTINUE TO MONITOR.
[2019-07-19 08:10] VITALS: BP 104/59
[2019-07-19 09:58] LABS: SOURCE THORACENTESIS
--- NOTE | 2019-07-19 11:22 | NUR ---
PT CARE ASSUMED AT 0700. A&Ox4. PT SCD'S REMOVED AND CATALINO WRAPS APPLIED. PT SITS AT THE EDGE OF THE BED FOR ALL HIS MEALS. MORNING MEDICATION GIVEN. DR. SWAIN CALLED AND GAVE A TELEPHONE ORDER TO HOLD ELIQUIS FOR 24 HRS. ACHS WITH NO COVERAGE NEEDED THIS AM. IV PATENT WITH NO REDNESS OR SWELLING. PT ON 2L. UP TO THE COMMODE WITH GAITBELT AND A WALKER. BED IN LOW POSITION, LOCKED WITH BED ALARM IN PLACE. CALL LIGHT WITHIN REACH.
--- NOTE | 2019-07-19 15:48 | NUR ---
Following for d/c planning needs. Received telephone calls from quiana Chaudhry and Remigio. Spoke with Dr Cosme. Pt is sheduled to have thoracentesis on Thursday. Notified [facility] liaison. Will remain available to assist as needed. Isidoro (son) [phone]
--- NOTE | 2019-07-19 16:06 | PATH ---
[facility] [address] [place] [address] PATHOLOGY RPT PROCEDURE Name: JATIN LIVE Room #: 438-P ADM IN M.R.#: [id number] Admission: 07/08/19 Date of : 30 Discharge: Report #: [id number] Path Case #: [id number] Note [facility] Accession Number: [id number] TESTS RESULT FLAG UNITS REF RANGE LAB Clinician Provided Cytology Information No. of containers..01 Other (Miscellaneous) Source: PLEURAL FLUID DIAGNOSIS: 02 PLEURAL FLUID NEGATIVE FOR MALIGNANT CELLS. REACTIVE MESOTHELIAL CELLS ARE PRESENT. THIS INTERPRETATION INCLUDES EVALUATION OF A CELL BLOCK. Pathologist ICD10: 02 R79.89 Signed out by: Padmini Peterson MD, Pathologist NPI- [id number] Performed by: Livia Loving, [employer] Principal ([facility]) Gross description: 01 25ML, GORDON YELLOW, CLEAR /LCS 07/18/2019 1827 Local FLAG LEGEND: L-Low Normal,H-High Normal,LL-Alert Low,HH-Alert High <-Panic Low,>-Panic High,A-Abnormal,AA-Critical Abnormal Performed at: [address] [place] [address] Chacho Cha MD, [address] [address] Padmini Peterson MD, Specimen Comment: A courtesy copy of this report has been sent to [phone] Specimen Comment: [id number] Specimen Comment: Report sent to Performed at: [address], [place], [place] [id number] MD Chacho Cha MD Phone: [phone]
[2019-07-19 17:03] VITALS: BP 128/68
[2019-07-19 19:34] VITALS: BP 117/76
--- NOTE | 2019-07-20 00:47 | NUR ---
ASSUMED PT CARE AT 1900. PT VERY DROWSY DURING SHIFT CHANGE. SLEEPING MAJORITY OF NIGHT, CONFUSION UPON WAKING UP FOR PM MEDS, REQUESTING TO BE SAT UP FOR BREAKFAST AT 2200. IRON INFUSED PER ORDER. PITTING EDEMA BLE, COARSE LUNGS SOUNDS DOCUMENTED. DENIES PAIN. MCGHEE PATENT WITH GOOD OUTPUT. PT CURRENTLY SLEEPING COMFORTABLY, DID NOT WANT CPAP ON TONIGHT. WILL CONTINUE TO MONITOR MENTAL STATUS.
[2019-07-20 04:16] VITALS: BP 108/64
[2019-07-20 06:41] LABS: ALBUMIN 2.2 g/dL (3.4-5.0); CALCIUM 8.7 mg/dL (8.5-10.1); CREATININE 1.6 mg/dL (0.7-1.3); PHOSPHORUS 4.5 mg/dL (2.5-4.9); POTASSIUM 3.5 mmol/L (3.5-5.1)
[2019-07-20 07:55] VITALS: BP 110/65
--- NOTE | 2019-07-20 13:38 | NUR ---
PT CARE ASSUMED AT 0700. A&Ox4. PT IS VERY UPSET TODAY TO HAVE TO GO TO HIS THORACENTISIS BUT WENT BEGRUDGENLY. VITALS ARE STABLE. LOWER EXTREMITY IS WRAPPED WITH CATALINO BANDAGE FOR THE AM SHIFT. PT/OT ON BOARD. AC WITH NO COVEREDGE NEEDED. CHRONIC MCGHEE IN PLACE WITH GOOD OUTPUT. BED IN LOW POSITION, LOCKED, WITH BED ALARM IN PLACE. CALL LIGHT WITHIN.
[2019-07-20 15:07] LABS: BODY FLUID ALBUMIN 0.7 g/dL (Not Estab.); BODY FLUID AMYLASE 28 U/L (()); BODY FLUID GLUCOSE 152 mg/dL (()); BODY FLUID LDH 60 IU/L (())
--- NOTE | 2019-07-20 15:15 | HC ---
[facility] [place] [address] CONSULTATION Name: JATIN LIVE Room #: 438-P ADM IN M.R.#: [id number] Admission: 07/08/19 Attend Phys: Dima Cosme MD Discharge: Date of : 30 Report #: [id number] THIS REPORT FOR: //name// CC: Dima Cosme DATE OF SERVICE: 07/11/2019 HISTORY OF PRESENT ILLNESS: The patient is an 89-year-old white male who lives in an independent apartment, but is interested in looking and moving into an assisted living facility. He was admitted with increased shortness of breath and right third finger pain. He was diagnosed with gout in the right third finger. As far as the shortness of breath, he is noted to have CHF; acute renal insufficiency superimposed on chronic kidney disease with proteinuria, chronic urinary tract infection. He has severe peripheral neuropathy, which he notes is due to his diabetes and is on Neurontin. He has obstructive sleep apnea. He has severe left hip osteoarthritis and is noted to be a poor candidate for any surgical intervention. He also has severe left shoulder degenerative arthritis. We are seeing him in rehabilitation medicine consultation. PAST MEDICAL HISTORY: As above. He has had hypertension, hyperlipidemia and permanent atrial fibrillation. 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 He has had multiple surgeries including bilateral knee replacements and a right total hip replacement. History of obstructive sleep apnea, peripheral neuropathy, diabetes mellitus type 2, bladder tumors that were removed, one of them apparently was malignant. He was self cathing himself. He has had prior prostate surgery x 2. He has BPH. He has had left shoulder surgery. He has chronic urinary tract infections. MEDICATIONS: Please see the full medication listing. ALLERGIES: ALLERGIC TO PENICILLIN AND SULFA. SOCIAL HISTORY: He lives alone in an independent living apartment at [facility]. 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 He has a son that lives in [place], [place]. REVIEW OF SYSTEMS: No current complaints of chest pain, shortness of breath or abdominal discomfort. PHYSICAL EXAMINATION: GENERAL: An 89-year-old white male in no obvious distress. Nasal prong O2 is in place. He is hard of hearing. He is alert, pleasant, follows basic commands. VITAL SIGNS: Temperature 97.7, pulse 69, respirations 20, and blood pressure 129/58. NEUROLOGIC: Alert. Right hand, he has the third finger gout with some [facility] [address] [place] [address] CONSULTATION Name: JATIN LIVE Room #: 438-P [facility] IN ..#: [id number] Admission: 07/08/19 Attend Phys: Dima Cosme MD Discharge: Date of : 30 Report #: [id number] discomfort. Upper extremity reveals functional range of motion with strength grade 3+/5, left upper extremity he does have decreased active range of motion of the left shoulder with limited movement because of the arthritic complaints. Elbow, wrist and hand is probably a grade 3+ to 4-. His lower extremities, he has evidence of peripheral neuropathy with decreased sensation bilateral distal lower extremities. His strength is grade 3+ to 3/5. ASSESSMENT: An 89-year-old white male with the following problem list: 1. Medical complexity with generalized debilitation. 2. Congestive heart failure, systolic and diastolic, acute and chronic. 3. Acute renal insufficiency superimposed on chronic kidney disease. 4. Right third finger gout exacerbation with elevated uric acid. 5. Severe peripheral neuropathy due to his diabetes. 6. Chronic urinary tract infections. 7. Benign prostatic hypertrophy, history of prior bladder cancer with surgery plus prostate surgeries. He premorbidly self-catheterized. 8. Obstructive sleep apnea. 9. Diabetes mellitus type 2. 10. Severe left hip and left shoulder degenerative arthritis. PLAN: PT and OT are to evaluate. Upon discussion with the patient he is interested in going for a senior living facility stay at [facility] and then moving into their assisted living facility. This may be a very reasonable plan for him. At this point, we will continue to follow, but would anticipate the noted above as he further medically stabilizes. Thank you for asking us to assist in this patient's care. <ELECTRONICALLY SIGNED> By: Ashok Prince MD 07/20/19 1515 1108 [id number] Ashok Prince MD /nt
[2019-07-20 20:00] VITALS: BP 115/65
[2019-07-21 03:00] VITALS: BP 119/66
--- NOTE | 2019-07-21 03:45 | NUR ---
ASSESED AT START OF SHIFT PT ASLEEP. AWAKE LATER DURING ASSESSMENT. AKHIOK. EVENING MEDS GIVEN AND PT RAMÓN IT WELL. ASKED FOR ICECREAM. IV INTACT AND SALINE LOCK. CHRONIC FOLLEY USE. UP WITH ASSIST TO BSC. EYE DROPS ADMINISTERED IN BOTH EYES. CATALINO WRAPS TAKEN OFF PER PT REQUEST AND SCD'S PLACED IN BOTH EXT. ON 2L OF O2. FALL PREC IN PLACE AND WILL CONT TO MONITOR TILL EOS.
[2019-07-21 05:46] LABS: ALBUMIN 2.1 g/dL (3.4-5.0); CALCIUM 8.7 mg/dL (8.5-10.1); CREATININE 1.7 mg/dL (0.7-1.3); PHOSPHORUS 4.8 mg/dL (2.5-4.9); POTASSIUM 3.7 mmol/L (3.5-5.1)
[2019-07-21 07:20] VITALS: BP 108/63
--- NOTE | 2019-07-21 08:35 | HC ---
[facility] [place] [address] CONSULTATION Name: JATIN LIVE Room #: 438-P ADM IN M.R.#: [id number] Admission: 07/08/19 Attend Phys: Dima Cosme MD Discharge: Date of : 30 Report #: [id number] THIS REPORT FOR: //name// CC: Dima Cosme REASON FOR CONSULTATION: Rising creatinine. HISTORY OF PRESENT ILLNESS: This is a very well-known patient to us. He is an 89-year-old with chronic kidney disease and a baseline creatinine of around 1.5. He sees Dr. Gomez. He has extensive cardiac and chronic kidney disease history. He previously had left bundle-branch block, atrial fibrillation. He has nephrotic range proteinuria for which he is maintained on an angiotensin converting enzyme inhibitor and spironolactone as an outpatient; however, there seems to be some misunderstanding of the patient taking his medications. The patient presented complaining that he has been having some shortness of breath. He has also reported that he had some issues with increasing bilateral lower extremity swelling. He is not really clear about the dose of his medications. However, reviewing his home medications showed that he should be maintained on Lasix, Aldactone, ramipril. I do not see those listed in his outpatient medication. Those were pulled from his kidney clinic. When the patient presented to the Emergency Room, his creatinine was 1.9 and has dropped down to 1.8. I am being consulted to manage his acute kidney injury. MEDICATIONS: 1. Eliquis. 2. Atorvastatin. 3. Lasix. 4. Pantoprazole. 5. Colchicine. PAST MEDICAL HISTORY: Extensive and includes the followin. Chronic kidney disease, sees Dr. Gomez in the clinic, atrophic kidney. 2. Bladder tumor resection. 3. AFib. 4. Left shoulder surgery. 5. Diabetes mellitus. 6. Hypertension. 7. Prostate surgery. 8. Left patellar repair. 9. Sleep apnea, utilizing CPAP. 10. Hyperlipidemia. 11. Hypertension. ALLERGIES: PENICILLIN. SOCIAL HISTORY: Denies drug or alcohol abuse. [facility] [address] [place] [address] CONSULTATION Name: JATIN LIVE Room #: 438-P [facility] IN M.R.#: [id number] Admission: 07/08/19 Attend Phys: Dima Cosme MD Discharge: Date of : 30 Report #: [id number] REVIEW OF SYSTEMS: GENERAL: No fever or chills. CARDIOVASCULAR: No chest pain, but he had some shortness of breath. PULMONARY: Significant for shortness of breath. GASTROINTESTINAL: No nausea or vomiting. GENITOURINARY: No frequency. No urgency. MUSCULOSKELETAL: Occasional back pain. PHYSICAL EXAMINATION: VITAL SIGNS: Blood pressure is marginal at 125/58, temperature was 36.7. HEAD AND NECK: No jugular venous distention. CHEST: No crackles. CARDIOVASCULAR: No rub. ABDOMEN: Soft, nontender. LOWER EXTREMITIES: Edema is localized to the right side with some wounds LABORATORY DATA: Reviewed. White blood cell count is 7.8. Sodium is 137, BUN is 95, creatinine is 1.8. IMPRESSION AND PLAN: 1. Chronic kidney disease with proteinuria due to diabetes mellitus and hypertension. 2. Known history of nephrotic range proteinuria and lives with a single kidney. 3. Diabetes mellitus. 4. Obstructive sleep apnea. 5. Remote history of bladder cancer. 6. Atrial fibrillation. 7. The patient's BUN and creatinine are on the rise. I will give him a holiday of diuretics today. I will resume his oral diuretics tomorrow. He should be on furosemide and Aldactone for his proteinuria. 8. Cardiology is now addressing his rhythm issues. 9. Local measures for his edema. 10. Follow urine cultures. 11. We will continue to follow. <ELECTRONICALLY SIGNED> By: Kerrie Sapp MD 07/21/19 0835 [id number] Kerrie Sapp MD /nt
--- NOTE | 2019-07-21 09:44 | NUR ---
PT CARE ASSUMED AT 0700. A&Ox4. PT IS IN A MUCH BETTER MOOD TODAY. HE HAS TAKEN ALL HIS MORNING MEDICATIONS WITHOUT REFUSING THEM. VITALS ARE STABLE AND HIS BLOOD GLUCOSE ARE ALL WITHIN RANGE WITH NO COVERAGE NEEDED. PT. WAS STARTED ON HIS APIXABAN THIS AM. PT IS SITTING AT THE EDGE OF HIS BED FOR BREAKFAST. SCD'S WERE TAKEN OFF AND CATALINO WRAPS WERE APPLIED. BED IN LOW POSITION, LOCKED, WITH BED ALARM IN PLACE. CALL LIGHT WITHIN REACH. VITALS STABLE THIS AM. PT IS A POSSIBLE DISCHARGE TO [facility] TODAY.
--- NOTE | 2019-07-21 12:39 | NUR ---
Following for d/c planning needs. Spoke with Dr Cosme. He said pt is medically ready for d/c. Called pt's sons to inform them of d/c today to [facility]. senior buyer planner to fax orders when available and make w/c van transportation arrangements.
[2019-07-21 14:17] LABS: BE(vivo) 5.7 mmol/L (-2 to +3); HCO3 27.4 mmol/L (22.0-26.0); PCO2 30.5 mmHg (35.0-45.0); PO2 153.3 mmHg (80.0-100.0); pH 7.571 (7.360-7.450); sO2 99.2 % (92.0-98.0)
[2019-07-21] MEDS ORDERED: IPRAT-ALBUT 0.5-3 ML INH ×2 (15:12)
[2019-07-21] MEDS ORDERED: GABAPENTIN 100100 MG PO (15:12)
[2019-07-21] MEDS ORDERED: KLOR-CON 10 ER10 MEQ PO (15:12)
[2019-07-21] MEDS ORDERED: ELIQUIS5 MG PO (15:12)
[2019-07-21] MEDS ORDERED: VOLTAREN GEL 1100 G2 TOP (15:12)
[2019-07-21] MEDS ORDERED: SPIRONOLACTONE25 M1 PO (15:12)
[2019-07-21] MEDS ORDERED: VOLTAREN GEL 1100 G1 TOP (15:12)
[2019-07-21] MEDS ORDERED: HUMALOG100 UNIT/1 SUBQ (15:44)
[2019-07-21] MEDS ORDERED: PULMICORT0.5 MG/21 INH (15:44)
[2019-07-21] MEDS ORDERED: METAMUCIL FIBE3.4 GM PO (15:44)
[2019-07-21] MEDS ORDERED: METOLAZONE 5 MG5 MG PO (15:44)
[2019-07-21] MEDS ORDERED: MIRALAX17 GM PO (15:44)
[2019-07-21] MEDS ORDERED: PANTOPRAZOLE SO40 M1 PO (15:44)
== END 2019-07-21 20:10 | DRG 698 ==
LOC: ER 20:28 → EROBS 22:15 → 3W 22:15 → 4S 07-14 16:24
PROVIDERS: Emergency Medicine; Hospitalist; Internal Medicine; ADMIT Internal Medicine
PROC: 5A09357 Assistance with Respiratory Ventilation, Less than 24 Consecutive Hours, Continuous Positive Airway Pressure (ICD-10-PCS; principal; 2019-07-12)
PROC: 5A09357 Assistance with Respiratory Ventilation, Less than 24 Consecutive Hours, Continuous Positive Airway Pressure (ICD-10-PCS; 2019-07-13)
PROC: 5A09357 Assistance with Respiratory Ventilation, Less than 24 Consecutive Hours, Continuous Positive Airway Pressure (ICD-10-PCS; 2019-07-14)
PROC: 5A09357 Assistance with Respiratory Ventilation, Less than 24 Consecutive Hours, Continuous Positive Airway Pressure (ICD-10-PCS; 2019-07-15)
PROC: 5A09357 Assistance with Respiratory Ventilation, Less than 24 Consecutive Hours, Continuous Positive Airway Pressure (ICD-10-PCS; 2019-07-16)
PROC: 5A09357 Assistance with Respiratory Ventilation, Less than 24 Consecutive Hours, Continuous Positive Airway Pressure (ICD-10-PCS; 2019-07-17)
PROC: 0W993ZZ Drainage of Right Pleural Cavity, Percutaneous Approach (ICD-10-PCS; 2019-07-18)
PROC: 0W9B3ZZ Drainage of Left Pleural Cavity, Percutaneous Approach (ICD-10-PCS; 2019-07-20)
DX: T83.511A Infection and inflammatory reaction due to indwelling urethral catheter, initial encounter (principal); J96.01 Acute respiratory failure with hypoxia; E43 Unspecified severe protein-calorie malnutrition; I50.43 Acute on chronic combined systolic (congestive) and diastolic (congestive) heart failure; J18.9 Pneumonia, unspecified organism; N17.9 Acute kidney failure, unspecified; I13.0 Hypertensive heart and chronic kidney disease with heart failure and stage 1 through stage 4 chronic kidney disease, or unspecified chronic kidney disease; I48.21 Permanent atrial fibrillation; D68.59 Other primary thrombophilia; N39.0 Urinary tract infection, site not specified; E78.5 Hyperlipidemia, unspecified; Z96.653 Presence of artificial knee joint, bilateral; H40.9 Unspecified glaucoma; K21.9 Gastro-esophageal reflux disease without esophagitis; N40.0 Benign prostatic hyperplasia without lower urinary tract symptoms; K64.9 Unspecified hemorrhoids; G47.30 Sleep apnea, unspecified; K08.409 Partial loss of teeth, unspecified cause, unspecified class; E78.00 Pure hypercholesterolemia, unspecified; Z96.641 Presence of right artificial hip joint; E11.22 Type 2 diabetes mellitus with diabetic chronic kidney disease; I45.4 Nonspecific intraventricular block; E11.21 Type 2 diabetes mellitus with diabetic nephropathy; M19.90 Unspecified osteoarthritis, unspecified site; I44.7 Left bundle-branch block, unspecified; M19.012 Primary osteoarthritis, left shoulder; M19.011 Primary osteoarthritis, right shoulder; S80.811A Abrasion, right lower leg, initial encounter; X58.XXXA Exposure to other specified factors, initial encounter; M79.7 Fibromyalgia; K59.00 Constipation, unspecified; I34.0 Nonrheumatic mitral (valve) insufficiency; I35.0 Nonrheumatic aortic (valve) stenosis; I35.1 Nonrheumatic aortic (valve) insufficiency; I27.20 Pulmonary hypertension, unspecified; M06.9 Rheumatoid arthritis, unspecified; N18.3 Chronic kidney disease, stage 3 (moderate); Y73.2 Prosthetic and other implants, materials and accessory gastroenterology and urology devices associated with adverse incidents; E87.6 Hypokalemia; E79.0 Hyperuricemia without signs of inflammatory arthritis and tophaceous disease; N50.89 Other specified disorders of the male genital organs; Z79.01 Long term (current) use of anticoagulants; Z88.2 Allergy status to sulfonamides; Z88.0 Allergy status to penicillin; Y99.8 Other external cause status; Z90.89 Acquired absence of other organs; Y92.89 Other specified places as the place of occurrence of the external cause; Y93.89 Activity, other specified; Z85.51 Personal history of malignant neoplasm of bladder; Z86.73 Personal history of transient ischemic attack (TIA), and cerebral infarction without residual deficits; Z68.26 Body mass index [BMI] 26.0-26.9, adult
CPT/HCPCS: 10195; 10879

== ENCOUNTER → 2019-09-22 | Outpatient (CLI) | payer OTHER ==
[~2019-09-22] MED LIST changes: +GABAPENTIN 100100 MG PO; +HUMALOG100 UNIT/1 SUBQ; +IPRAT-ALBUT 0.5-3 ML INH; +KLOR-CON 10 ER10 MEQ PO; +METAMUCIL FIBE3.4 GM PO; +METOLAZONE 5 MG5 MG PO; +PANTOPRAZOLE SO40 M1 PO; +PULMICORT0.5 MG/21 INH; +VOLTAREN GEL 1100 G1 TOP; +VOLTAREN GEL 1100 G2 TOP
== END ==
LOC: SJCVC 09:58
DX: R94.31 Abnormal electrocardiogram [ECG] [EKG] (principal); I44.7 Left bundle-branch block, unspecified; I48.21 Permanent atrial fibrillation; I11.0 Hypertensive heart disease with heart failure; I50.32 Chronic diastolic (congestive) heart failure; G47.33 Obstructive sleep apnea (adult) (pediatric); E78.5 Hyperlipidemia, unspecified; R80.9 Proteinuria, unspecified; J43.9 Emphysema, unspecified; E11.9 Type 2 diabetes mellitus without complications; Z79.01 Long term (current) use of anticoagulants; Z90.5 Acquired absence of kidney